=== PATIENT | male | born 1945 | race Caucasian/White ===

== ENCOUNTER 2017-05-25 10:14 | Inpatient (IN) | payer MEDICARE ==
[~2017-05-25] VITALS: Ht 182.9 cm; Wt 108.6 kg
[2017-05-25 10:56] VITALS: BP 149/77; PULSE 100; RESP 16; O2SAT 95
[2017-05-25] MEDS: 0.9% Sodium Chloride 1,000 ML IV SCH ×2 (11:40→21:35)
[2017-05-25] MEDS ORDERED: Ondansetron 2 mg/mL 2 mL Inj IVPUSH PRN (11:40)
[2017-05-25] MEDS ORDERED: Polyethylene Glycol (PEG) 17 Gm Powder PO PRN (11:40)
[2017-05-25] MEDS ORDERED: Alum-Mag Hydrox-Simeth 30 mL Suspension PO PRN (11:40)
[2017-05-25] MEDS ORDERED: OMEP20CA11 PO (11:48)
[2017-05-25] MEDS ORDERED: SIMV40TA5 PO (11:48)
[2017-05-25] MEDS ORDERED: METH500T5 PO (11:48)
[2017-05-25] MEDS ORDERED: METF-778 PO (11:48)
[2017-05-25] MEDS ORDERED: LORA0.5T PO (11:48)
[2017-05-25] MEDS ORDERED: BRIM5DRO10 BOTH_EYES (11:48)
[2017-05-25] MEDS ORDERED: LEVO100T6 PO (11:48)
[2017-05-25] MEDS ORDERED: DIGE1TAB PO (11:48)
[2017-05-25] MEDS ORDERED: UBID100C16 PO (11:48)
[2017-05-25] MEDS ORDERED: HYDR25TA4 PO (11:48)
[2017-05-25] MEDS ORDERED: LORA10CA9 PO (11:48)
[2017-05-25 12:03] LABS: BASOPHILS % (AUTO) 0.3 % (0-3); EOSINOPHILS % (AUTO) 0.7 % (0-5); MONOCYTES % (AUTO) 16.7 % (4-12); Mean Corpuscular Hemoglobin 31.9 pg (27.0-35.0); Mean Corpuscular Volume 88.8 fL (81-100); Platelet Count 149 bil/L (150-400)
[2017-05-25 12:30] LABS: APPEARANCE,URINE CLEAR (CLEAR,HAZY); COLOR,URINE DARK YELLOW (YELLOW); OCCULT BLOOD,URINE SMALL (NEGATIVE); PH,URINE 5.5 (5.0-8.0); UROBILINOGEN,URINE NORMAL (NORMAL)
[2017-05-25] MEDS: D5 0.45% NaCl + KCl 20 mEq/L 1,000 ML IV SCH ×2 (12:37→21:25)
[2017-05-25] MEDS ORDERED: Potassium Chloride 20 mEq SR Tablet PO ONE (13:00)
[2017-05-25 13:03] LABS: Magnesium 1.9 mg/dL (1.6-2.6)
[2017-05-25 13:31] VITALS: PULSE 65
[2017-05-25] MEDS: Insulin Human REGular 300 Unit/3 mL Inj SUBQ SCH ×2 (14:30→21:35)
[2017-05-25 15:11] VITALS: BP 158/82; PULSE 101; RESP 18; O2SAT 93
[2017-05-25] MEDS: Ampicillin-Sulbactam Inj 3,000 MG in 0.9% Sodium Chloride 100 ML IV SCH ×3 (16:00→23:18)
--- NOTE | 2017-05-25 16:13 | NUR ---
MRI Patient to MRI at this time. Ativan given prior.
[2017-05-25] MEDS ORDERED: DIGESTIVE PO SCH (16:30)
[2017-05-25] MEDS ORDERED: [UNRECOGNIZED DRUG - OTHER] PO SCH (16:30)
--- NOTE | 2017-05-25 16:47 | PCM.HPMED ---
Subjective Date of Service May 25, 2017 Primary Provider: Admitting Physician: Daniel Mcmullen MD Primary Care Physician: Jay Painter MD Attending Physician: Daniel Mcmullen MD Admit Status: Direct Admit, Full Admit Chief Complaint: Abdominal pain/6 days History of Present Illness: Tor is a pleasant 79-year-old gentleman with past medical history of hypertension, diabetes,HLD, obesity,GERD,ARACELIS who was transferred from Dr Mcmullen' s surgical clinic for direct admission due to abdominal pain. Patient states he had periumbilical, intermittent, abdominal pain which started on Sunday. Continues to have pain for 2 days and pain moved down to bilateral lower abdomen. Pain improved for the following 2 todays. Patient did not seek medical evaluation as he has history of diverticulosis with occasional brief lower abdominal pain. Since Sunday pain moved to RUQ.Pain was worse on Sunday and is improving since yesterday. He also had temp 100.4 2 days ago . Denies any nausea or vomiting. Denies any bowel habit change. Denies urinary complaints. He was seen by PCP and workup revealed leukocytosis 24,normal LFTs,CT consistent with acute cholecystitis.referred to Dr Mcmullen . he ordered US which also confirmed cholecystitis. He was sent from Dr Mcmullen's office for admission for acute cholecystitis. Review of Systems: Comprehensive review of systems performed, pertinent positives and negatives included in history of present illness Allergies Coded Allergies: No Known Allergies (Unverified , 05/25/17) Home Medications Levothyroxine 100mcg daily Metformin 1000 mg. Hydrochlorothiazide 25 mg daily Simvastatin 40 mg.hs Coenzyme Q 100mg hs Lorazepam 0.5 mg at bedtime when necessary for sleep Omeprazole 20 mg by mouth twice a day alphagan eye drp loratadine 1 moore daily PMH hypertension, diabetes/prediabetes, HLD, obesity, GERD, ARACELIS used to use CPAp but stopped using 2 yrs ago . Had palate surgery 20 years ago for that Erectile Dysfunction Surgical History Tonsillectomy in childhood uvulopalatopharyngoplasty 20 yrs ago for ARACELIS Family History Reviewed and unremarkable Social History Hx Alcohol Use: No Hx Substance Use: No Exam Vital Signs Vital Sign - Last Date Time Temp Pulse Resp B/P Pulse Ox O2 Delivery O2 Flow Rate FiO2 05/25/17 15:11 36.8 101 18 158/82 93 Room Air Exam Gen. patient is lying comfortably in hospital bed HEENT: Head is normocephalic atraumatic, Pupils equal and reactive, extraocular movements intact, Lungs clear to auscultation bilaterally Heart regular rate and rhythm without murmurs gallops or rubs Abdomen RUQ tenderness. Extremities pulses are present dorsalis pedis posterior tibialis and radial. tSkin is warm and dry there are no rashes, Psych alert and oriented to person place and time Neuro cranial nerves II through XII are grossly intact Lymph: There is no lymphadenopathy appreciated in the cervical supra infraclavicular regions : no ambrose Lab and Diagnostics Result Diagram: 05/25/17 1145 05/25/17 1145 X-Rays, CTs and MRIs PROCEDURE: US ABDOMEN ([id number]) INDICATIONS: CT SUGGESTS ACUTE CHOLECYSTITIS IMPRESSION: 1. Increased hepatic echogenicity which may be related to hepatic steatosis although other sources of hepatocellular dysfunction could be considered in the differential. 2. Gallbladder wall thickening and pericholecystic fluid without sludge or stones in the gallbladder fundus and no sonographic Fernando's sign. This can be associated with acute acalculus cholecystitis. Please correlate with physical exam findings and laboratory values. Differential considerations include gallbladder hydrops and neoplasm. This finding was discussed with Dr. Mcmullen's medical social consultant by the train crew member at 8 AM on 05/25/17. Dictated by: Heena Vazquez M.D. on 05/25/2017 at 8:17 Approved by: Heena Vazquez M.D. on 05/25/2017 at 8:23 Assessment & Plan Tor is a pleasant 79-year-old gentleman with past medical history of hypertension, diabetes,HLD, obesity,GERD,ARACELIS who was transferred from Dr Mcmullen' s surgical clinic for direct admission due to abdominal pain. # Acute acalculus cholecystitis,poa -wbc 20.5,CT and US consistent with acute acalculous cholecystitis -blood culture sent -npo -IVF at 100ml/h -Antibiotics Unasyn started per surgery -MRCP requested by Dr Mcmullen -Pain control morphine # HTN -Continue hydrochlorothiazide # Diabetes/prediabetes -hold metformin, insulin sliding scale # ARACELIS ,not using CPAP anymore #insominia/anxiety -lorazepam prn,ambien hs prn dvt ppx SCD for now Patient admitted under inpatient status with expected length of stay > 2 midnights for severity of present symptoms, complexities of treatment plan and risk for adverse events full code per patient Resuscitation Status: CPR: Attempt Resuscitation copies to: Jay Painter MD, Melaku MD May 25, 2017 16:47
--- NOTE | 2017-05-25 18:22 | DRSVH ---
PROCEDURE: MRI ABDOMEN WITH AND WITHOUT CONTRAST ([id number]) INDICATIONS: Hepatic Protocol - Cholecystitis vs Carcinoma TECHNIQUE: Coronal HASTE, axial 2D FLASH in- and [id number]; axial breath-hold T2 FSE. Dynamic axial VIBE dur ing the administration of contrast; post-contrast coronal VIBE or 2D FLASH with fat saturation from t he hepatic dome to the iliac crests. Optional diffusion weighted imaging and ADC may be performed. COMPARISON: Outside Film, CT, CT ABD PELVIS W CON, 05/23/2017, 11:00. [facility], US, AB DOMEN SONOGRAM, 11/19/2013, 7:19. FINDINGS: Image quality: Breathing motion artifact limits evaluation on the precontrast images. Lung bases: No basal pleural effusions. Heart size is normal. Solid organs: There are multiple circumscribed, lobulated hepatic cysts. One cyst demonstrates a lobu lated focus of T1 hyperintense signal suggesting the presence of blood products. Some of these are la yered posteriorly in a dependent fashion. There is no definite enhancement on the postcontrast images . The spleen demonstrates normal size and enhancement. The gallbladder is markedly distended and the wall is diffusely thickened throughout. There is a smal l amount of pericholecystic free fluid and pericholecystic fat stranding. There is mild enhancement o f the gallbladder wall on the delayed postcontrast images suggesting hyperemia. There are no discrete gallbladder mass lesions. Biliary system is non dilated. Pancreas is normal in morphology. No adrenal nodules. Both kidneys demonstrate normal size and enhancement, without hydronephrosis. There is mild bilateral perinephric fat stranding. Nodes and vessels: No retroperitoneal or mesenteric adenopathy by size criteria. Aorta and inferior vena cava are normal in size. Bowel and peritoneum: Unenhanced bowel loops are normal in caliber. No free fluid. Bones and soft tissues: No ventral hernias. Bone marrow is normal in overall signal. IMPRESSION: 1. Gallbladder distention with diffuse wall thickening and pericholecystic fluid. No cholelithiasis. These findings are suspicious for acute acalculous cholecystitis. No findings to suggest biliary obst ruction. No discrete enhancing gallbladder mass lesion to suggest focal neoplasm. These findings were discussed with Dr. Mcmullen at 6:12 PM on 05/25/17. Approved by: Heena Vazquez M.D. on 05/25/2017 at 18:20
[2017-05-25 19:55] VITALS: BP 141/71; PULSE 103; RESP 18; O2SAT 92
[2017-05-25] MEDS ORDERED: METHYLCELLULOSE 1000 MG PO SCH (20:30)
[2017-05-25] MEDS: Brimonidine 0.2% 5 mL Ophthalmic Solution BOTH_EYES SCH (21:24)
[2017-05-25] MEDS: LORazepam 0.5 mg Tablet PO SCH (21:24)
[2017-05-25] MEDS: Pantoprazole 20 mg ER24 Tablet PO SCH (21:24)
--- NOTE | 2017-05-25 21:57 | PCM.PNSURG ---
Subjective Date of Service: May 25, 2017 Visit Information: Reason for Visit Acalculous Cholecystitis,Dm Date of Admission: May 25, 2017 at 10:30 Hospital Day # 1 Subjective: Hungry. Otherwise doing okay, see my clinic note 05/25/2017 for further details Objective Vital Sign- Last 8 Hours Date Time Temp Pulse Resp B/P Pulse Ox O2 Delivery O2 Flow Rate FiO2 05/25/17 19:55 37.1 103 18 141/71 92 Room Air 05/25/17 15:11 36.8 101 18 158/82 93 Room Air Abdomen: Soft, Other (Tender to deep palpation RUQ) Result Diagram: 05/25/17 1145 05/25/17 1145 Assessment & Plan Impression Acalculous cholecystitis Problems: Plan Discussed antibiotics alone versus cholecystostomy tube versus cholecystectomy. Given his symptomatic improvement over the days, he would like to try antibiotics alone We will do that, following his labs over the next couple of days We also need to improve on his blood sugar control The earliest I see him going home if he improves is Sunday We might need to look into interventions if he does not improve or gets worse Daniel Mcmullen MD May 25, 2017 21:57
[2017-05-25 23:11] LABS: Hemoglobin A1C 7.9 % (4.8-5.6)
[2017-05-26] VITALS (9 sets, daily range): BP systolic 122–163; BP diastolic 73–94; PULSE 71–100; RESP 16–19; O2SAT 92–98
[2017-05-26] MEDS: Insulin Human REGular 300 Unit/3 mL Inj SUBQ SCH ×5 (02:30→20:51)
[2017-05-26] MEDS: D5 0.45% NaCl + KCl 20 mEq/L 1,000 ML IV SCH (03:54)
[2017-05-26 05:40] LABS: BASOPHILS % (AUTO) 0.2 % (0-3); EOSINOPHILS % (AUTO) 0.7 % (0-5); MONOCYTES % (AUTO) 16.7 % (4-12); Mean Corpuscular Hemoglobin 31.3 pg (27.0-35.0); Mean Corpuscular Volume 90.2 fL (81-100); NEUTROPHILS % (AUTO) 72.9 % (40-74); Platelet Count 143 bil/L (150-400)
[2017-05-26 06:19] LABS: Magnesium 1.9 mg/dL (1.6-2.6)
[2017-05-26] MEDS: Ampicillin-Sulbactam Inj 3,000 MG in 0.9% Sodium Chloride 100 ML IV SCH ×4 (06:31→23:47)
--- NOTE | 2017-05-26 07:13 | NUR ---
Anxiety Rather anxious on initial assessment. Lots of 1:1 provided to answer all questions and ensure needs met. Prn Ativan also administered per patient request and effective. Currently resting in bed without any complaints.
[2017-05-26] MEDS ORDERED: Potassium Chloride 20 mEq SR Tablet PO ONE (07:35)
[2017-05-26] MEDS: Brimonidine 0.2% 5 mL Ophthalmic Solution BOTH_EYES SCH ×2 (08:32→20:50)
[2017-05-26] MEDS: Pantoprazole 20 mg ER24 Tablet PO SCH ×2 (08:33→20:44)
[2017-05-26] MEDS: metFORMIN ER 500 mg ER24 Tablet PO SCH ×2 (09:05→19:19)
--- NOTE | 2017-05-26 11:38 | PROG NOTE ---
[address] [address] PROGRESS NOTE PATIENT: SONA BERNABE : 1945 MR#: [id number] ADMIT: 05/25/2017 JOB ID: [id number] DATE: 05/26/2017 SUBJECTIVE: The patient is seen in followup. He feels good with no abdominal pain whatsoever. He has no nausea. He wants to go home. OBJECTIVE: Temperature 36.9, pulse 91, blood pressure 144/73, saturation 92% on room air. General: He is sitting up in bed, in no acute distress. Chest is clear. Heart: Regular rate and rhythm. No murmurs. Abdomen is obese but soft, nondistended. He has had some mild fullness in the right upper quadrant but no discrete palpable mass. There is a small umbilical hernia, which is reducible. LABORATORIES: White count is 20.2, hematocrit 37.8, platelets 143, creatinine 1.05, glucose 157. Procalcitonin 0.81. IMAGING: Shows gallbladder distention with wall thickening and a small amount of pericholecystic fluid, but no cholelithiasis. There is no biliary obstruction. The liver has a hemorrhagic hepatic cyst. ASSESSMENT AND PLAN: A 71-year-old man with poorly controlled diabetes with acalculous cholecystitis. He is stable clinically with no abdominal pain and no nausea, with normal liver function tests. He wants to go home today, and I think that is reasonable. I discussed with him the management of acalculous cholecystitis and the role for cholecystostomy tube versus cholecystectomy. He is not in favor of cholecystectomy or cholecystostomy tube. I support him going home on oral antibiotics. He had an outpatient prescription for ciprofloxacin, and I would simply continue that for one week. He should follow up in surgery clinic in approximately one week.
--- NOTE | 2017-05-26 12:18 | PCM.PNMED ---
Subjective Date of Service May 26, 2017 Subjective Right upper quadrant pain improving. Afebrile. Patient went into a new episode of atrial fibrillation this morning. Onset while patient in bathroom and straining down. Episode lasted for 9 minutes and was asymptomatic. Elevated TSH noted and Synthroid dose increased. Exam Vital Signs Vital Sign - Last Date Time Temp Pulse Resp B/P Pulse Ox O2 Delivery O2 Flow Rate FiO2 05/26/17 10:23 91 05/26/17 08:31 36.9 16 144/73 92 Room Air Intake and Output 05/25/17 05/25/17 05/26/17 Cumulative From/Thru 15:00 23:00 07:00 05/25/17 10:58 - 05/26/17 05:56 Intake Total 0 ml 800 ml 800 ml Output Total 200 ml 100 ml 300 ml Balance -200 ml 700 ml 500 ml Intake Oral 0 ml 800 ml 800 ml Output Urine Total 200 ml 100 ml 300 ml # Voids 1 1 # Bowel Movements 0 0 Exam Gen. patient is lying comfortably in hospital bed HEENT: Head is normocephalic atraumatic, Pupils equal and reactive, extraocular movements intact, Lungs clear to auscultation bilaterally Heart regular rate and rhythm without murmurs gallops or rubs Abdomen RUQ tenderness. Extremities pulses are present dorsalis pedis posterior tibialis and radial. tSkin is warm and dry there are no rashes, Psych alert and oriented to person place and time Neuro cranial nerves II through XII are grossly intact Lymph: There is no lymphadenopathy appreciated in the cervical supra infraclavicular regions : no ambrose IVs and Medications Medications Reviewed: Medications were reviewed in detail Lab and Diagnostics Result Diagram: 05/26/1744105/26/17 0442 X-Rays, CTs and MRIs PROCEDURE: US ABDOMEN ([id number]) INDICATIONS: CT SUGGESTS ACUTE CHOLECYSTITIS IMPRESSION: 1. Increased hepatic echogenicity which may be related to hepatic steatosis although other sources of hepatocellular dysfunction could be considered in the differential. 2. Gallbladder wall thickening and pericholecystic fluid without sludge or stones in the gallbladder fundus and no sonographic Fernando's sign. This can be associated with acute acalculus cholecystitis. Please correlate with physical exam findings and laboratory values. Differential considerations include gallbladder hydrops and neoplasm. This finding was discussed with Dr. Mcmullen's medical staff services coordinator by the internal control manager at 8 AM on 05/25/17. Dictated by: Heena Vazquez M.D. on 05/25/2017 at 8:17 Approved by: Heena Vazquez M.D. on 05/25/2017 at 8:23 PROCEDURE: MRI ABDOMEN WITH AND WITHOUT CONTRAST ([id number]) INDICATIONS: Hepatic Protocol - Cholecystitis vs Carcinoma IMPRESSION: 1. Gallbladder distention with diffuse wall thickening and pericholecystic fluid. No cholelithiasis. These findings are suspicious for acute acalculous cholecystitis. No findings to suggest biliary obstruction. No discrete enhancing gallbladder mass lesion to suggest focal neoplasm. These findings were discussed with Dr. Mcmullen at 6:12 PM on 05/25/17. Approved by: Heena Vazquez M.D. on 05/25/2017 at 18:20 ADDENDUM: 2. Probable blood products within a hepatic cyst as described above. Nonemergent 6 week ultrasound followup is recommended to ensure stability of this finding and exclude internal vascularity. Dictated by: Heena Vazquez M.D. on 05/25/2017 at 20:03 Assessment & Plan Tor is a pleasant 79-year-old gentleman with past medical history of hypertension, diabetes,HLD, obesity,GERD,ARACELIS who was transferred from Dr Mcmullen' s surgical clinic for direct admission due to abdominal pain. # Acute acalculus cholecystitis,poa -Initial wbc 20.5,CT,MRI and US consistent with acute acalculous cholecystitis -blood culture x2 no growth -Tolerating diet -IVF at 100ml/h -Antibiotics Unasyn.will discharge on ciprofloxacin( has script) tomorrow -Pain control morphine #New onset paroxysmal atrial fibrillation -never had any history of atrial fibrillation -Episode lasted for 9 minutes -Probably precipitated by infection and hypokalemia -Telemetry -Echocardiogram requested # Hypothyroidism -High TSH 20,low FT4 of 0.69 - increased Synthroid from 100mcg to 125mcg , recommend follow-up TFT in few weeks # Hypokalemia -Repleted # HTN -Continue hydrochlorothiazide # Diabetes -hold metformin, insulin sliding scale -a1c 7.9 # ARACELIS ,not using CPAP anymore #insominia/anxiety -lorazepam prn,ambien hs prn dvt ppx SCD for now Patient admitted under inpatient status with expected length of stay > 2 midnights for severity of present symptoms, complexities of treatment plan and risk for adverse events full code per patient Disposition: Possible discharge tomorrow if continues to improve Jason Tavarez MD May 26, 2017 12:18
[2017-05-26] MEDS ORDERED: 0.9% Sodium Chloride 250 ML ONE (12:44)
--- NOTE | 2017-05-26 14:06 | DRSVH ---
[facility] [address] [place] [address] Echocardiogram Report Name: SONA BERNABE Luke e: 05/26/2017 Height: 72 in Hospital Exam Location: [facility] Weight: 240 lb Gender: Male BSA: 2.3 m2 : 1945 Age: 71 yrs BP: 144/73 mmHg Reason For Study: New onset atrial fibrillation Ordering Physician: HOSPITALIST [facility] Performed By: Loree Santana Referring Physician[facility] Interpretation Summary The left ventricle is normal in size. The ejection fraction is estimated to be 65-70%. The right ventricle is grossly normal size. The right ventricle is hyperdynamic. The left atrium is severely dilated. No significant valvular pathology seen. Procedure: A two-dimensional transthoracic echocardiogram with color flow and Doppler was performed. There is no prior echocardiogram noted for this patient. The study quality was technically difficult. The patient was in normal sinus rhythm during the exam. Left Ventricle: The left ventricle is normal in size. Left ventricular wall thickness is mildly increased. Proximal septal thickening is noted. There is no echo evidence for significant left ventricular outflow tract obstruction. The ejection fraction is estimated to be 65-70%. Septal motion is consistent with conduction abnormality. Assessment of diastolic parameters indicates a relaxation abnormality of the left ventricle, consistent with normal filling pressures. Right Ventricle: The right ventricle is grossly normal size. The right ventricle is hyperdynamic. Atria: The left atrium is severely dilated. Right atrium not well visualized. The interatrial septum is intact with no evidence for an atrial septal defect. The thickening of interatrial septum suggests lipomatous hypertrophy. Mitral Valve: The mitral valve leaflets appear borderline thickened, but open well. There is trace mitral regurgitation. Aortic Valve: The aortic valve is trileaflet. The aortic valve is slightly calcified. There is no aortic valve stenosis. There is trace aortic regurgitation. Tricuspid Valve: The tricuspid valve is not well visualized, but is grossly normal. Pulmonary artery pressures cannot be estimated because of the lack of a measurable TR jet velocity. There is trace tricuspid regurgitation. Pulmonic Valve: The pulmonic valve is not well seen, but is grossly normal. Great Vessels: The aortic root is normal size. The ascending aorta is mildly enlarged. The IVC is of normal diameter and collapses greater than 50% with a sniff. This suggests a low right atrial pressure of 3 mm Hg. Pericardium/ Pleura There is an anterior echo-free space consistent with a fat pad. There is no pleural effusion. MMode/2D Measurements & Calculations LVIDd: 5.6 cm LA A2 area LVOT diam LV bryant. diameter/BSA LVIDs: 3.1 cm (cm/m^2): 2.5 FS: 45.6 % asc Aorta IVSd: 1.1 cm LA A4 area Diam: 4.0 cm LVPWd: 1.3 cm LA length (vol) LA vol: 50.1 ml LA vol index : 21.8 ml/m2 LV sys. diameter/BSA (cm/m^2): 1.3 Doppler Measurements & Calculations Ao V2 max: 129.1 cm/secMV E max sukhwinder MV E/A: 0.85 PA V2 max Ao max P.7 mmHg : 48.5 cm/sec Med Peak E' Sukhwinder : 79.1 cm/sec Ao mean P.8 mmHg MV A max sukhwinder PA mean PG LVOT Max Sukhwinder : 57.2 cm/sec E/E' med: 5.8 : 1.5 mmHg : 108.7 cm/sec Lat Peak E' Sukhwinder YOVANI(I,D): 3.7 cm E/E' lat: 5.4 sev ratio: 0.77 E/e' average: 5.6 MV dec time: 0.16 sec Ao V2 mean LV V1 max PG PA V2 mean : 92.4 cm/sec : 59.6 cm/sec Ao V2 VTI: 24.5 cmLV V1 VTI: 18.9 cm PA pr(Accel) : 40.5 mmHg YOVANI(V,D): 4.0 cm2 YOVANI indexed to BSA (cm^2/m^2): 1.6 Reading Physician:JENELLE
--- NOTE | 2017-05-26 15:53 | NUR ---
A-fib/Constipation Pt had one episode of A-fib this morning between 0810-0817AM rate 140-150's. Pt states during that time he was in the bathroom straining as he was constipated. Pt will be staying for further monitoring of heart rhythm. ECHO completed. Pt aware of plan of care. Since the morning episode pt has been SR 80-90's w/PAC and PVC's. Pt states he has hx of ARACELIS but does not wear a CPAP pt states he had uvula removed and that helped a little bit but hasn't had a repeat sleep study. I did educate pt on correlation between A-fib and ARACELIS. at bedside. Pt given suppository per request and 2 senna. He did end up having a bowel movement. Care ongoing.
[2017-05-26] MEDS: LORazepam 0.5 mg Tablet PO SCH (20:44)
--- NOTE | 2017-05-27 05:01 | NUR ---
Rest Pt observed sleeping most of night, denies pain or nausea. Antibiotics infused. Safely independent for care. Hourly rounding ongoing.
[2017-05-27 05:19] VITALS: BP 144/82; PULSE 85; RESP 18; O2SAT 97
[2017-05-27] MEDS: Ampicillin-Sulbactam Inj 3,000 MG in 0.9% Sodium Chloride 100 ML IV SCH (05:21)
[2017-05-27 06:09] VITALS: PULSE 85
[2017-05-27] MEDS: metFORMIN ER 500 mg ER24 Tablet PO SCH (07:12)
[2017-05-27] MEDS: Brimonidine 0.2% 5 mL Ophthalmic Solution BOTH_EYES SCH (07:51)
[2017-05-27] MEDS: Insulin Human REGular 300 Unit/3 mL Inj SUBQ SCH (07:51)
[2017-05-27] MEDS: Pantoprazole 20 mg ER24 Tablet PO SCH (07:52)
--- NOTE | 2017-05-27 08:24 | PCM.DIMED ---
Discharge Instructions Date of Service May 27, 2017 Dates of Hospitalization May 25, 2017 at 10:30 Discharge Diagnosis Discharge Diagnosis # Acute acalculus cholecystitis,poa #New onset paroxysmal atrial fibrillation,resolved # Hypothyroidism -High TSH 20,low FT4 of 0.69 # HTN # Diabetes # ARACELIS ,not using CPAP anymore #insominia/anxiety Diet Discharge Diet: Low fat, Low Sodium Activity Discharge Activity: Limited until seen by PCP Call your provider Call your provider for: Fever or Chills, Shortness of breath, Bleeding, Chest pain, Vomitting, Excessive diarrhea, Weakness (unilateral) Patient Instructions Patient Instructions You were hospitalized due to acute cholecystitis. You have been treated with IV antibiotics. Please continue ciprofloxacin for 5 more days. You also had paroxysmal atrial fibrillation episode which lasted for about 9 minutes and resolved by itself. Your thyroid level is low, I have increased your thyroid medication/Synthroid dose from 100mcg daily to 125mcg daily. Please follow-up with PCP in 2 weeks and recheck thyroid function test. Please follow-up with in 1-2 weeks. Follow-up Provider: Jay Painter MD Follow-up with PCP in: 1 week Provider: Daniel Mcmullen MD Follow-up in: 2 weeks Jason Tavarez MD May 27, 2017 08:24
[2017-05-27] MEDS ORDERED: CIPR-198 PO (08:26)
[2017-05-27] MEDS ORDERED: LEVO100T6 PO (08:26)
[2017-05-27 08:35] LABS: Mean Corpuscular Volume 92.8 fL (81-100); Platelet Count 164 bil/L (150-400)
[2017-05-27 08:36] LABS: BASOPHILS % (AUTO) 0.4 % (0-3); EOSINOPHILS % (AUTO) 1.1 % (0-5); MONOCYTES % (AUTO) 12.5 % (4-12); NEUTROPHILS % (AUTO) 71.5 % (40-74)
[2017-05-27 08:48] VITALS: BP 141/79; PULSE 89; RESP 19; O2SAT 98
--- NOTE | 2017-05-27 09:32 | NUR ---
Activity Patient up ambulating in hallway this AM. Tolerating activity well. Denies pain and shortness of breath.
--- NOTE | 2017-05-27 09:58 | NUR ---
Discharge Patient discharged home and ambulated out to personal vehicle at 0945. Discharge information gone over with patient by roller mill operator and hard copy of prescriptions accompanied patient as well as original copys of discharge information. Telemetry and IV DC'd intact prior to patient discharging.
--- NOTE | 2017-05-27 12:29 | PCM.DC.MED ---
Discharge Summary Date of Service May 27, 2017 Dates of Hospitalization Date of Hospital Admission May 25, 2017 at 10:30 Date of Discharge: May 27, 2017 Providers: Admitting Physician: Daniel Mcmullen MD Primary Care Physician: Jay Painter MD Attending Physician: Daniel Mcmullen MD Diagnosis at Time of Discharge Diagnosis at Time of Discharge # Acute acalculus cholecystitis,poa #New onset paroxysmal atrial fibrillation,resolved # Hypothyroidism -High TSH 20,low FT4 of 0.69 # HTN # Diabetes # ARACELIS ,not using CPAP anymore #insominia/anxiety Consultations surgery Dr Mcmullen Procedures XRay, CTs & MRIs PROCEDURE: US ABDOMEN ([id number]) INDICATIONS: CT SUGGESTS ACUTE CHOLECYSTITIS IMPRESSION: 1. Increased hepatic echogenicity which may be related to hepatic steatosis although other sources of hepatocellular dysfunction could be considered in the differential. 2. Gallbladder wall thickening and pericholecystic fluid without sludge or stones in the gallbladder fundus and no sonographic Fernando's sign. This can be associated with acute acalculus cholecystitis. Please correlate with physical exam findings and laboratory values. Differential considerations include gallbladder hydrops and neoplasm. This finding was discussed with Dr. Mcmullen's medical assistant internal medicine by the magnetizer at 8 AM on 05/25/17. Dictated by: Heena Vazquez M.D. on 05/25/2017 at 8:17 Approved by: Heena Vazquez M.D. on 05/25/2017 at 8:23 PROCEDURE: MRI ABDOMEN WITH AND WITHOUT CONTRAST ([id number]) INDICATIONS: Hepatic Protocol - Cholecystitis vs Carcinoma IMPRESSION: 1. Gallbladder distention with diffuse wall thickening and pericholecystic fluid. No cholelithiasis. These findings are suspicious for acute acalculous cholecystitis. No findings to suggest biliary obstruction. No discrete enhancing gallbladder mass lesion to suggest focal neoplasm. These findings were discussed with Dr. Mcmullen at 6:12 PM on 05/25/17. Approved by: Heena Vazquez M.D. on 05/25/2017 at 18:20 ADDENDUM: 2. Probable blood products within a hepatic cyst as described above. Nonemergent 6 week ultrasound followup is recommended to ensure stability of this finding and exclude internal vascularity. Dictated by: Heena Vazquez M.D. on 05/25/2017 at 20:03 Brief History per HPI Tor is a pleasant 79-year-old gentleman with past medical history of hypertension, diabetes,HLD, obesity,GERD,ARACELIS who was transferred from Dr Mcmullen' s surgical clinic for direct admission due to abdominal pain. Patient states he had periumbilical, intermittent, abdominal pain which started on Sunday. Continues to have pain for 2 days and pain moved down to bilateral lower abdomen. Pain improved for the following 2 todays. Patient did not seek medical evaluation as he has history of diverticulosis with occasional brief lower abdominal pain. Since Sunday pain moved to RUQ.Pain was worse on Sunday and is improving since yesterday. He also had temp 100.4 2 days ago . Denies any nausea or vomiting. Denies any bowel habit change. Denies urinary complaints. He was seen by PCP and workup revealed leukocytosis 24,normal LFTs,CT consistent with acute cholecystitis.referred to Dr Mcmullen . he ordered US which also confirmed cholecystitis. He was sent from Dr Mcmullen's office for admission for acute cholecystitis. Hospital Course Tor is a pleasant 79-year-old gentleman with past medical history of hypertension, diabetes,HLD, obesity,GERD,ARACELIS who was transferred from Dr Mcmullen' s surgical clinic for direct admission due to abdominal pain. # Acute acalculus cholecystitis,poa -Initial wbc 20.5,CT,MRI and US consistent with acute acalculous cholecystitis -blood culture x2 no growth -Tolerating diet -IVF given -Antibiotics Unasyn.will discharge on ciprofloxacin for five more days -Pain meds declined by patient #New onset paroxysmal atrial fibrillation on 05/26 -never had any history of atrial fibrillation -Episode lasted for 9 minutes -Probably precipitated by infection and hypokalemia -Telemetry -Echocardiogram unremarkable # Hypothyroidism -High TSH of 20,low FT4 of 0.69 - increased Synthroid from 100mcg to 125mcg , recommend follow-up TFT in few weeks # Hypokalemia -Repleted # HTN -Continue hydrochlorothiazide # Diabetes -hold metformin, resume tomorrow ,insulin sliding scale used inpatient -a1c 7.9 # ARACELIS ,not using CPAP anymore #insominia/anxiety -lorazepam prn,ambien hs prn Patient admitted under inpatient status with expected length of stay > 2 midnights for severity of present symptoms, complexities of treatment plan and risk for adverse events full code per patient Disposition: discharge home Exam Vital Signs (Last) Date Time Temp Pulse Resp B/P Pulse Ox O2 Delivery O2 Flow Rate FiO2 05/27/17 08:48 36.9 89 19 141/79 98 Room Air Exam Gen. patient is lying comfortably in hospital bed HEENT: Head is normocephalic atraumatic, Pupils equal and reactive, extraocular movements intact, Lungs clear to auscultation bilaterally Heart regular rate and rhythm without murmurs gallops or rubs Abdomen RUQ tenderness. Extremities pulses are present dorsalis pedis posterior tibialis and radial. Skin is warm and dry there are no rashes, Psych alert and oriented to person place and time Neuro cranial nerves II through XII are grossly intact Lymph: There is no lymphadenopathy appreciated in the cervical supra infraclavicular regions : no ambrose Test 05/25/17 11:45 05/25/17 11:48 05/26/17 04:42 05/27/17 05:10 Hemoglobin A1c 7.9% (4.8-5.6) Lipase 35U/L (13-60) CA 19-9 Antigen 70U/mL (0-35) Procalcitonin 0.81ng/mL (0.00-0.08) Urine Color Dark yellow (YELLOW) Urine Appearance Clear (CLEAR,HAZY) Urine pH 5.5 (5.0-8.0) Urine Specific Gary 1.020 (1.003-1.035) Urine Protein 100mg/dL (NEG,TRACE) Urine Glucose (UA) Negativemg/dL (NEGATIVE) Urine Ketones Negativemg/dL (NEGATIVE) Urine Occult Blood Small (NEGATIVE) Urine Nitrite Negative (NEGATIVE) Urine Bilirubin Negative (NEGATIVE) Urine Urobilinogen Normalmg/dL (NORMAL) Urine Leukocyte Esterase Negative (NEGATIVE) Urine RBC 0-2/hpf (0-2) Urine WBC 0-5/hpf (0-5) Urine Epithelial Cells Occasional/hpf (NONE-MOD) Urine Crystals None seen (NONE SEEN) Urine Bacteria None/hpf (NONE-FEW) Urine Hyaline Casts None/lpf (NONE) Urine Granular Casts Occasional (NONE SEEN) Urine Waxy Casts None seen (NONE SEEN) Urine Red Blood Cell Casts None seen (NONE SEEN) Urine White Blood Cell Casts None seen (NONE SEEN) Urine Mucus Present (None Seen) Urine Trichomonas None seen (NONE SEEN) Urine Yeast None (NONE SEEN) Urinalysis Comment None Urine Culture Reflexed Not indicated Magnesium Level 1.9mg/dL (1.6-2.6) Thyroid Stimulating Hormone (TSH) 19.890uIU/mL (0.450-4.500) Free Thyroxine 0.69ng/dL (0.82-1.77) White Blood Count 17.0th/mm3 (3.8-10.1) Red Blood Count 4.19mil/mm3 (4.40-5.80) Hemoglobin 13.4g/dL (13.8-17.2) Hematocrit 38.9% (41.0-50.0) Mean Corpuscular Volume 92.8fL (81-100) Mean Corpuscular Hemoglobin 32.0pg (27.0-35.0) Mean Corpuscular Hemoglobin Concent 34.4% (32.0-37.0) Red Cell Distribution Width 13.0% (12.3-15.4) Platelet Count 164bil/L (150-400) Neutrophils (%) (Auto) 71.5% (40-74) Lymphocytes (%) (Auto) 8.9% (14-46) Monocytes (%) (Auto) 12.5% (4-12) Eosinophils (%) (Auto) 1.1% (0-5) Basophils (%) (Auto) 0.4% (0-3) Sodium Level 137mEq/L (134-144) Potassium Level 4.0mEq/L (3.5-5.2) Chloride Level 95mEq/L (97-108) Carbon Dioxide Level 28mmol/L (18-29) Blood Urea Nitrogen 16mg/dL (8-27) Creatinine 1.24mg/dL (0.76-1.27) Estimat Glomerular Filtration Rate 61mL/min (>59) Glucose Level 147mg/dL (60-99) Calcium Level 8.0mg/dL (8.5-10.1) Total Bilirubin 0.6mg/dL (0.0-1.2) Aspartate Amino Transf (AST/SGOT) 24U/L (0-50) Alanine Aminotransferase (ALT/SGPT) 21U/L (0-44) Alkaline Phosphatase 67U/L (25-160) Total Protein 5.6g/dL (6.4-8.4) Albumin 3.0g/dL (3.4-5.0) Discharge Medications Discharge Medications Brimonidine Tartrate (Alphagan P) 5 Ml Drops 5 ML BOTH_EYES BID (Reported) Ciprofloxacin (Ciprofloxacin) 500 Mg Tablet 500 MG PO BID Prescribed by: ELIU DENNIS MD Digestive 8/L.acidoph/Pectin (Digestive Enzymes Tablet) 50 Million Cell-100 Mg Tablet 1 EACH PO before meals (Reported) Levothyroxine (Levothyroxine) 100 Mcg Tablet 125 MCG PO DAILY Prescribed by: ELIU DENNIS MD Loratadine (Loratadine) 10 Mg Capsule 10 MG PO DAILY (Reported) Lorazepam (Lorazepam) 0.5 Mg Tablet 0.5 MG PO HS (Reported) Metformin HCl (Metformin HCl ER) 1,000 Mg [id number] 1,000 MG PO BID (Reported) Methylcellulose (Citrucel) 500 Mg Tablet 1,000 MG PO BID (Reported) Omeprazole (Omeprazole) 20 Mg Capsule.dr 20 MG PO BID (Reported) Simvastatin (Simvastatin) 40 Mg Tablet 40 MG PO HS (Reported) Ubidecarenone (Coq-10) 100 Mg Capsule 100 MG PO HS (Reported) As needed Hydrochlorothiazide (Hydrochlorothiazide) 25 Mg Tablet 25 MG PO DAILY PRN PRN For HYPERtension (Reported) Followup Plan Disposition: home Discharge Diet: Low fat, Low Sodium Discharge Activity: Limited until seen by PCP Patient Instructions You were hospitalized due to acute cholecystitis. You have been treated with IV antibiotics. Please continue ciprofloxacin for 5 more days. You also had paroxysmal atrial fibrillation episode which lasted for about 9 minutes and resolved by itself. Your thyroid level is low, I have increased your thyroid medication/Synthroid dose from 100mcg daily to 125mcg daily. Please follow-up with PCP in 2 weeks and recheck thyroid function test. Please follow-up with in 1-2 weeks. Follow-up Provider: Jay Painter MD Follow-up with PCP in: 1 week Provider: Daniel Mcmullen MD Follow-up in: 2 weeks Time spent 35 minutes counselling patient and coordinating discharge copies to: Jay Painter MD; Daniel Mcmullen MD, Melaku MD May 27, 2017 12:29
== END 2017-05-27 09:45 | disposition home or self-care (01) | DRG 446 ==
LOC: OSC 10:30
PROVIDERS: ADMIT Student in an Organized Health Care Education/Training Program; ATTEND Internal Medicine
DX: K81.0 Acute cholecystitis (principal); I10 Essential (primary) hypertension; E11.9 Type 2 diabetes mellitus without complications; E78.5 Hyperlipidemia, unspecified; K21.9 Gastro-esophageal reflux disease without esophagitis; G47.33 Obstructive sleep apnea (adult) (pediatric); F41.9 Anxiety disorder, unspecified; G47.00 Insomnia, unspecified; E03.9 Hypothyroidism, unspecified; I48.0 Paroxysmal atrial fibrillation

== ENCOUNTER 2017-06-12 09:18 | Inpatient (IN) | payer MEDICARE ==
[~2017-06-12] VITALS: Ht 182.9 cm; Wt 111.4 kg
[~2017-06-12 09:18] MED LIST: BRIM5DRO10 BOTH_EYES; CIPR-198 PO; DIGE1TAB PO; HYDR25TA4 PO; LEVO100T6 PO; LORA0.5T PO; LORA10CA9 PO; METF-778 PO; METH500T5 PO; OMEP20CA11 PO; SIMV40TA5 PO; UBID100C16 PO
[2017-06-12 09:45] VITALS: BP 142/82; PULSE 90; RESP 20; O2SAT 97
--- NOTE | 2017-06-12 10:19 | NUR ---
Admit Direct admit from [facility]. Pt walks in on own with steady gait. C/O some pain tolerable in upper ABD. Denies CP, SOB, Nausea. Endorses fevers and appetite changes. MD West notified who has assigned [facility] Team with pt. Pt to be seen by [facility] team. Care continues. Plan to keep pt NPO until further notice.
[2017-06-12] MEDS ORDERED: Ondansetron 2 mg/mL 2 mL Inj IVPUSH PRN (11:15)
[2017-06-12] MEDS ORDERED: Piperacillin-Tazo 3.375 Gm Inj 3.375 GM in Dextrose 5% Minibag Plus 50 ML IV ONE (11:15)
[2017-06-12] MEDS ORDERED: Alum-Mag Hydrox-Simeth 30 mL Suspension PO PRN (11:15)
[2017-06-12 12:12] LABS: BASOPHILS % (AUTO) 0.1 % (0-3); EOSINOPHILS % (AUTO) 0.3 % (0-5); MONOCYTES % (AUTO) 20.6 % (4-12); Mean Corpuscular Hemoglobin 31.7 pg (27.0-35.0); NEUTROPHILS % (AUTO) 65.1 % (40-74); Platelet Count 131 bil/L (150-400)
[2017-06-12 13:30] LABS: APPEARANCE,URINE HAZY (CLEAR,HAZY); COLOR,URINE STRAW (YELLOW); OCCULT BLOOD,URINE TRACE (NEGATIVE); PH,URINE 5.5 (5.0-8.0)
[2017-06-12] MEDS: 0.9% Sodium Chloride 1,000 ML IV SCH (13:30)
[2017-06-12 13:31] LABS: UROBILINOGEN,URINE NORMAL (NORMAL)
[2017-06-12] MEDS ORDERED: MeTOProlol 1 mg/mL 5 mL Inj ONE (13:52)
[2017-06-12] MEDS ORDERED: Neostigmine 1 mg/mL 10 mL Inj ONE (13:52)
[2017-06-12] MEDS ORDERED: Rocuronium 10 mg/mL 5 mL Inj ONE (13:52)
[2017-06-12] MEDS ORDERED: Ondansetron 2 mg/mL 2 mL Inj ONE (13:52)
[2017-06-12] MEDS ORDERED: fentaNYL-PF 50 mCg/mL 2 mL Inj ONE (13:52)
[2017-06-12] MEDS ORDERED: Propofol 10,000 mCg/mL 20 mL Inj ONE (13:52)
[2017-06-12] MEDS ORDERED: Dexamethasone 4 mg/mL Inj ONE (13:52)
[2017-06-12] MEDS ORDERED: Glycopyrrolate 0.2 MG/ML 1mL Inj ONE (13:52)
--- NOTE | 2017-06-12 14:06 | PCM.HPMED ---
Subjective Date of Service Jun 12, 2017 Primary Provider: Admitting Physician: Rd West MD Primary Care Physician: Jay Painter MD Attending Physician: Rd West MD Admit Status: Direct Admit, Admit to [place] Team Chief Complaint: Fever/3 days History of Present Illness: Tor is a pleasant 79-year-old gentleman with past medical history of hypertension, diabetes,HLD, obesity,GERD,ARACELIS who is directly admitted per his PCP rec due to bacteremia after he presented to his PCP office with fever. Patient was recently hospitalized from 05/25-05/27 for acute acalculous cholecystitis. Workup on prior admission Wbc 20.5,CT and US consistent with acute acalculous cholecystitis. She was treated conservatively with Unasyn and discharged on ciprofloxacin. He improved and had no symptoms for 2 weeks after discharge. Had follow-up with PCP Dr Painter and surgeon Dr Mcmullen on 06/04 . CBC done at PCP on 06/04 reportedly had WBC of 14 but unremarkable otherwise Saturday 06/09 he developed sudden onset high-grade fever,temp as high as 103.0 with associated malaise which prompted his visit to PCP office Sunday/ yesterday . He had blood drawn yesterday . He was also scheduled for CT scan today. This morning he was called by his PCP due to positive blood culture for gram- negative rods, WBC 15,ALT elevated 3x, urinalysis no pyuria and admitted directly for bacteremia labs on 06/11 : WBCs 15, ALT 126, AST 49, bilirubin 0.4, BNP 15, creatinine 1.23, elevated CRP Denies any abdominal pain, nausea or vomiting. His states he had complained of mild epigastric pain few days ago. Denies any urinary complaints. Denies any constipation or diarrhea. Denies cough or dyspnea Review of Systems: Comprehensive review of systems performed, pertinent positives and negatives included in history of present illness Allergies Coded Allergies: No Known Allergies (Unverified , 05/25/17) Home Medications Levothyroxine 125mcg daily( increased from 100mcg daily up on discharge on 05/27 due to High TSH 20,low FT4 of 0.69) Metformin XR 500 mg. daily Hydrochlorothiazide 25 mg daily Simvastatin 40 mg.hs Coenzyme Q 100mg hs Lorazepam 0.5 mg at bedtime when necessary for sleep Omeprazole 20 mg by mouth twice a day alphagan eye drp loratadine 1 moore daily PMH Recent acute acalculus cholecystitis hypertension, diabetes/prediabetes, HLD, obesity, GERD, ARACELIS used to use CPAp but stopped using 2 yrs ago . Had palate surgery 20 years ago for that Erectile Dysfunction Surgical History Tonsillectomy in childhood uvulopalatopharyngoplasty 20 yrs ago for ARACELIS Family History per PCP note he has family history of pancreatic and prostate cancer Social History Hx Alcohol Use: No Hx Substance Use: No Exam Vital Signs Vital Sign - Last Date Time Temp Pulse Resp B/P Pulse Ox O2 Delivery O2 Flow Rate FiO2 06/12/17 09:45 36.6 90 20 142/82 97 Room Air Exam Gen. patient is lying comfortably in hospital bed HEENT: Head is normocephalic atraumatic, Pupils equal and reactive, extraocular movements intact, Lungs clear to auscultation bilaterally Heart regular rate and rhythm without murmurs gallops or rubs Abdomen soft nontender without hepatosplenomegaly Extremities pulses are present dorsalis pedis posterior tibialis and radial. Skin is warm and dry there are no rashes, Psych alert and oriented to person place and time Neuro cranial nerves II through XII are grossly intact Lymph: There is no lymphadenopathy appreciated in the cervical supra infraclavicular regions : no ambrose Lab and Diagnostics Result Diagram: 06/12/17 1112 06/12/17 1112 Assessment & Plan Tor is a pleasant 79-year-old gentleman with past medical history of hypertension, diabetes,HLD, obesity,GERD,ARACELIS who is directly admitted per his PCP Dr.Blume hale due to bacteremia after he presented to his PCP office with fever. # Gram-negative bacteremia/sepsis,poa -temp 103.0 at home,wbc 14.5 -Source likely acute acalculus cholecystitis given recent cholecystitis managed conservatively,negative pyuria,elevated ALT x3 -NS at 100ml/h -will do CT abd/pelvis with contrast -notified Dr Mcmullen of patients hospitalization and will officially consult after CT scan -Started Zosyn -will consider ID consult if initial workup is unrevealing of source of infection -npo until Ct and/or surgical eval -will send new blood culture. Follow-up sensitivity of initial blood culture from PCP office # Recent paroxysmal atrial fibrillation on prior hospitalization on 05/26 -never had any history of atrial fibrillation -Episode lasted for 9 minutes -Probably precipitated by infection and hypokalemia -Telemetry -Echocardiogram unremarkable # Hypothyroidism -Recently increased Synthroid from 100mcg to 125mcg on prior hospitalization due to High TSH of 20,low FT4 of 0.69 -Continue Synthroid # HTN -Continue hydrochlorothiazide # Diabetes -hold metformin ,insulin sliding scale used inpatient -Recent a1c 7.9 # ARACELIS ,not using CPAP anymore #insominia/anxiety -lorazepam prn,ambien hs prn full code per patient Patient admitted under inpatient status with expected length of stay > 2 midnights for severity of present symptoms, complexities of treatment plan and risk for adverse events copies to: Jay Painter MD, Melaku MD Jun 12, 2017 14:06
--- NOTE | 2017-06-12 14:42 | DRSVH ---
PROCEDURE: X-RAY CHEST ONE VIEW, PORTABLE ([id number]) INDICATIONS: fever TECHNIQUE: One view of the chest was acquired. COMPARISON: None. FINDINGS: Surgical changes and devices: None. Lungs and pleura: No pleural effusions or pneumothorax. Lungs are clear. Mediastinum: Mediastinal contours appear normal. Heart size is normal. Bones and chest wall: No suspicious bony lesions. Overlying soft tissues appear unremarkable. IMPRESSION: No acute cardiopulmonary disease. Dictated by: Richard Cadena [facility] Interpreted: Willie Balbuena MD on 06/12/2017 at 14:19 Approved by: Willie Balbuena M.D. on 06/12/2017 at 14:41
[2017-06-12 15:17] VITALS: PULSE 91
[2017-06-12] MEDS ORDERED: LEVO125T6 PO (15:30)
[2017-06-12] MEDS ORDERED: ZLP10T PO (15:30)
--- NOTE | 2017-06-12 15:51 | DRSVH ---
PROCEDURE: CT ABDOMEN AND PELVIS WITH CONTRAST ([id number]) INDICATIONS: bacteremia,recent cholecystitis TECHNIQUE: After the administration of oral and intravenous contrast, 5 mm thick sections acquired from the diap hragms to the symphysis. 5 mm thick coronal and sagittal reformats were performed. For radiation do se reduction, the following was used: automated exposure control, adjustment of mA and/or kV accordi ng to patient size. COMPARISON: [facility], US, US ABDOMEN, 05/25/2017, 7:11. [facility], MR, MR ABD W&WO CON, 05/25/2017, 16:24. Outside Film, CT, CT ABD PELVIS W CON, 05/23/2017, 11:00. FINDINGS: Image quality: Excellent. ABDOMEN: Lung bases: Lung bases are clear. Heart size is normal. Solid organs: Liver and spleen are normal in size and enhancement. There are scattered hepatic cyst s. Gallbladder is abnormal with prominent mural thickening, and pericholecystic free fluid and edema . Biliary system is non-dilated. Pancreas enhances normally. No adrenal nodules. Kidneys are norm al in size and enhancement, without hydronephrosis. Peritoneum and bowel: Stomach, small bowel, and colon loops are normal in caliber and wall thickness . No free fluid or air. Nodes and vessels: No retroperitoneal or mesenteric adenopathy. Aorta and inferior vena cava are no rmal in caliber. Miscellaneous: No ventral hernias. PELVIS: Genitourinary: Bladder wall thickness is normal. Miscellaneous: No inguinal hernias or adenopathy. Bones: No suspicious bony lesions. No vertebral body compression fractures. IMPRESSION: Acute cholecystitis with gallbladder wall prominent thickening and adjacent pericholecyst ic free fluid in mural thickening of the gallbladder wall up to 1.4 cm. The appearance at the gallbl adder is considered unlikely to represent a manifestation of malignancy and much more likely to repre sent an inflammatory process. Surgical consultation is recommended. Please note that prior MR scanning of the abdomen had identified a similar appearance, with probable diagnosis of acalculous cholecystitis. Gallbladder wall thickening by ultrasound at that time was 11 -12 mm maximal dimension without identified polypoid mass. In my opinion there is no suspicion for p resence of gallbladder carcinoma by imaging characteristics. Dictated by: Marko Raya M.D. on 06/12/2017 at 15:45 Approved by: Marko Raya M.D. on 06/12/2017 at 15:50
[2017-06-12] MEDS: Pantoprazole 20 mg ER24 Tablet PO SCH (16:30)
--- NOTE | 2017-06-12 17:04 | CONS ---
[address] [address] CONSULTATION REPORT PATIENT: SONA BERNABE : 1945 MR#: [id number] ADMIT: 06/12/2017 JOB ID: [id number] DATE OF SERVICE: 06/12/2017 CHIEF COMPLAINT: A 72-year-old gentleman with acalculous cholecystitis with bacteremia, seen in consultation at the request of Jason Tavarez MD. HISTORY OF PRESENT ILLNESS: This patient is a 72-year-old gentleman I met on May 25, 2017, at the request of Dr. Painter with a diagnosis of acute acalculous cholecystitis. At that time, after a thorough investigation, he was admitted to the hospital and was treated with antibiotics and was thought to have gotten clinically improved and got discharged home. When I last saw him on June 04, 2017, he was finishing his antibiotics and was feeling fine. After that, he started developing fevers without any significant abdominal pain which he self-treated with some Tylenol but he eventually presented to Dr. Painter. Dr. Painter saw him yesterday and obtained blood work, along with blood cultures and sent him as a direct admission to the hospital today after blood cultures showed gram-negative rods. The patient at this time denies any significant abdominal pain. OTHER MEDICAL PROBLEMS: 1. Hypertension. 2. Hyperlipidemia. 3. Diabetes. 4. Obesity. 5. Gastroesophageal reflux disease. 6. Erectile dysfunction. 7. Sleep apnea. 8. Irritable bowel syndrome. 9. Hypothyroidism. 10. Anxiety. PRIOR OPERATIONS: 1. Tonsillectomy in childhood. 2. Uvulopalatopharyngoplasty. REVIEW OF SYSTEMS: Twelve point review of systems negative other than the pertinent positives noted in History of Present Illness and other medical problems. MEDICATIONS: At home: 1. Hydrochlorothiazide. 2. Levothyroxine. 3. Metformin. 4. Omeprazole. 5. Citrucel. 6. Enzymes. ALLERGIES: No known drug allergies. FAMILY HISTORY: Family history of high blood pressure and diabetes. SOCIAL HISTORY: He quit smoking in 1970 after about 12 years. He is a retired peace officer. He is here with his . They live in [place]. INVESTIGATIONS: Labs, June 12, 2017: WBC 14.5, hemoglobin 13.5, platelet count 131. Glucose 121. ALT 80. Procalcitonin 0.44. Albumin 3.6. Urinalysis negative. Chest x-ray, June 12, 2017: Normal. CT abdomen and pelvis, June 12, 2017 showed acute cholecystitis with gallbladder wall prominent thickening with adjacent pericholecystic fluid with gallbladder wall measuring up to 1.4 cm. No obvious calcified stones were seen again. PHYSICAL EXAMINATION: A 72-year-old gentleman in no acute distress. BMI 33.3. Temperature 36.6, pulse 90, blood pressure 142/82, saturating 97% on room air. Eyes: Normal pupils, conjunctivae. Ears, nose, and throat: Normal external appearance. Neck: No lymphadenopathy or jugular venous distention. Respiratory: Normal effort, clear to auscultation. Cardiovascular: Regular rate and rhythm. Gastrointestinal: Abdomen is soft. Denies significant pain despite deep pressure in the right upper quadrant. Reports "I can feel something there." Genitourinary: Deferred. Neurologic: No gross deficits. Psych: Alert, appropriate. Skin normal. ASSESSMENT AND PLAN: Acalculous cholecystitis with bacteremia. Recommended laparoscopic cholecystectomy with cholangiogram. Given the duration of his symptoms for over three weeks now, we could have trouble with significant inflammation increasing the risk of the operation. After discussing the risks, benefits, and alternatives, the patient and his wished to proceed and will proceed accordingly. He is going to be managed with IV antibiotics and insulin for control of his blood sugars in the acute period.
[2017-06-12] MEDS ORDERED: DIGESTIVE PO SCH (17:30)
[2017-06-12] MEDS ORDERED: [UNRECOGNIZED DRUG - OTHER] PO SCH (17:30)
--- NOTE | 2017-06-12 18:55 | CONS ---
[address] [address] CONSULTATION REPORT PATIENT: SONA BERNABE : 1945 MR#: [id number] ADMIT: 06/12/2017 JOB ID: [id number] DATE OF SERVICE: 06/12/[address] Tavarez for this timely consult. REASON FOR CONSULTATION: Bacteremic acalculous cholecystitis. HISTORY OF PRESENT ILLNESS: The patient is a 72-year-old gentleman with a recent history of admission for acalculous cholecystitis in early May of this year. During that admission an evaluation was done which strongly suggested by imaging that the patient had acalculous cholecystitis but he was nontoxic and responded to conservative therapy. The decision was made to send him home on some oral Cipro following a brief course of IV antibiotics and the patient actually did extremely well until about Sunday, June 09, three days ago. At that point, he noticed a recrudescence of some low-grade fever as well as some subtle chills and generalized malaise. Because of these symptoms and especially because of the fever, he went and saw his primary care physician, Dr. Painter, yesterday. Dr. Painter was concerned about his fever as well as a leukocytosis and checked blood cultures. The patient was contacted by telephone today because those blood cultures done just yesterday are already growing gram-negative rods and the patient was therefore sent to the emergency department where he was rapidly readmitted and re-evaluated. He has been seen already by the surgeon this afternoon who believes that, at this point, a cholecystectomy is indicated for what appears to be recurrent or relapsing acalculous cholecystitis, this time associated with gram-negative bacteremia. Despite this fairly dramatic story over he past three weeks or so, the patient late this afternoon is calm, cool, collected, and really denies much in the way of ongoing symptomatology. He is a bit anxious about his surgery which is supposed to proceed in the next hour or two. He has had some fevers and chills since Sunday as noted, but they have been low-grade on both counts and not severe nor have they been occurring this afternoon. He is not having any significant sore throat, cough, shortness of breath or chest pain. He is not having, interestingly, any right upper quadrant pain and denies nausea vomiting, diarrhea, or really any intra-abdominal pain. He does agree though that given these two admissions in the last couple weeks, he should proceed with surgery. PAST MEDICAL HISTORY: 1. 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 2. Hypertension. 3. Diabetes controlled with metformin. 4. Hyperlipidemia. 5. Obesity. 6. GERD. 7. Obstructive sleep apnea, treated with palate surgery. 8. Erectile dysfunction. SOCIAL HISTORY: The patient was a cigarette smoker, but quit in 1970 as a young man actually. He is not an alcohol consumer except maybe one drink a month. He lives with his Aria. 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 FAMILY HISTORY: Negative for tuberculosis in 1st or second-degree relatives. REVIEW OF SYSTEMS: The patient has no significant headache today. No acute visual complaint, no sore throat. No cough, shortness of breath or chest pain. He denies nausea, vomiting, diarrhea, or even anorexia. He has no right upper quadrant pain and more importantly, no abdominal pain of any kind. Denies urgency, frequency, dysuria, or any urinary symptoms. No pain in the joints, swelling of the joints. No skin rash and no focal motor symptoms. Remainder of the review of systems is negative. PHYSICAL EXAMINATION: Reveals an afebrile gentleman, temperature 36.6, pulse 91, respiratory rate 20, blood pressure 142/82. He is saturating well on room air. He appears in almost no distress at all which is somewhat surprising, given that he very recently had a high-grade bacteremia. He is alert and lucid. His head without trauma. Eyes without conjunctivitis or scleral icterus. Nose normal. Oral cavity, no thrush or hairy leukoplakia. Neck supple. No cervical adenopathy. His lungs are essentially clear. Cardiac tones: Regular rate and rhythm without murmur. Abdomen somewhat obese. His BMI is 33. There is no focal hepatosplenomegaly, no ascites and no tenderness whatsoever including very negative right upper quadrant. He does not have a Grubbs catheter at this point. No suprapubic fullness is noted. No evidence of synovitis. No skin rashes. Peripheral pulses are intact. Neurologically, he is intact. LABORATORIES: Include white count 14,500 today. Platelets 131. Creatinine 0.98. Urinalysis 0-5 white cells. Micro studies include negative blood cultures today, but yesterday's blood cultures were reported from [facility] to be growing gram-negative rods. IMAGING: Includes an abdominal CT that was performed today which shows acute cholecystitis with gallbladder wall thickening and adjacent pericholecystic free fluid. The gallbladder wall is 1.4 cm thick and the radiologist opined that this did not appear malignant but more likely was an acute inflammatory process. The radiologist also reviewed the prior MRI scans from his earlier admission and feels that the whole package is consistent with acalculous cholecystitis. The patient also had a chest x-ray done today which I reviewed on the screen. This chest x-ray shows no acute pulmonary infiltrate, but by my reading, it suggests there could be some mild cardiomegaly. The radiologist's opinion is that it is clear, and I am inclined to go along with their interpretation. IMPRESSION: This is an unusual case of outpatient acalculous cholecystitis. The patient presented during the first few days of May with fairly typical picture and an MRI scan suggested acalculous cholecystitis at that time. He cooled down rapidly with a short course of Zosyn and then was transition to outpatient oral Cipro and did fine until June 09 when fever and chills recurred. Blood cultures drawn on the were positive very rapidly for gram-negative rods which I suspect are arising from his gallbladder. His CT of the abdomen today is very convincing in terms of the report for the diagnosis of acalculous cholecystitis and goes along nicely with the MRI scan done 2-1/2 weeks ago. The only odd part of this case is the patient is so asymptomatic. This afternoon, the patient is watching a baseball game and looks as if he is sitting on his sofa at home. He is in no distress whatsoever and his exam is surprisingly benign including very vigorous and deep palpation of the right upper quadrant. Nonetheless, we do have gram-negative bacteria in his blood and two imaging studies done over the course of the past three weeks which implicate his gallbladder and probable acalculous cholecystitis is the cause of this process. RECOMMENDATIONS: 1. I agree with the Zosyn which has been started. 2. Tomorrow we will make contact with the lab and find out the definitive identification of the gram-negative rods in his blood as well as their susceptibility pattern. 3. I agree with the plans for emergent surgery this evening given that the patient has been admitted twice now with this same process. 4. Will continue to follow this patient with you and thank you very much for this interesting consult.
[2017-06-12 19:00] VITALS: BP 152/80; PULSE 108; RESP 17; O2SAT 94
[2017-06-12] MEDS ORDERED: Lactated Ringer's 1,000 ML IV ONE (19:10)
--- NOTE | 2017-06-12 19:15 | NUR ---
Off unit to surgery Arrived to shift as pt is being taken to OR.
[2017-06-12] MEDS ORDERED: Bupivacaine-MPF 0.5% 30 mL Inj INFILTRATE ONE (19:51)
[2017-06-12] MEDS ORDERED: Iopamidol-300 50 mL Inj IV ONE (19:52)
[2017-06-12] MEDS: Piper-Tazo 3.375 Gm/50 mL D5W Minibag Plus - Q8H over 4 hrs IV SCH ×2 (20:30)
[2017-06-12] MEDS ORDERED: METHYLCELLULOSE 1000 MG PO SCH (20:30)
[2017-06-12 20:41] LABS: APPEARANCE,URINE CLEAR (CLEAR,HAZY); COLOR,URINE YELLOW (YELLOW); OCCULT BLOOD,URINE SMALL (NEGATIVE); PH,URINE 5.5 (5.0-8.0); UROBILINOGEN,URINE NORMAL (NORMAL)
[2017-06-13] VITALS (12 sets, daily range): BP systolic 122–156; BP diastolic 64–87; PULSE 67–97; RESP 17–26; O2SAT 93–98
[2017-06-13] MEDS ORDERED: HYDROmorphone 1 mg/mL Inj IVPUSH PRN ×2 (00:35→00:40)
--- NOTE | 2017-06-13 00:39 | PCM.HPANE ---
Patient Data Surgeon Admitting Provider:Rd West MD Attending Provider:Rd West MD Primary Care Physician:Jay Painter MD Other Provider:Eryn Carrera Anesthesia Reason for Visit Bacteremia,Cholecystitis BACTEREMIA,CHOLECYSTITIS Ht/WT & BMI Height (Feet): 6 Weight (Kilograms): 111.400 Body Mass Index 33.26 Allergies Coded Allergies: No Known Allergies (Unverified , 05/25/17) Past Anesthesia History Anesthesia History: Denies:: Anesthesia Reactions Diabetes History Hx Diabetes?: Yes (PreDiabetic ) MRSA MRSA: No Medications Reported Medications Zolpidem (Ambien)10 Mg Nwozle90 Mg PO HS 06/12/17 Levothyroxine 125 Mcg Zayhzk852 Mcg PO QAM For Thyroid Replacement 06/12/17 Loratadine 10 Mg Qdupgpp99 Mg PO QAM 05/25/17 Digestive 8/.acidoph/Pectin (Digestive Enzymes Tablet)50 Million Cell-100 Mg Tablet1 Tablet PO TIDWM 05/25/17 Methylcellulose (Citrucel)500 Mg Tablet1,000 Mg PO BID 05/25/17 Brimonidine Tartrate (Alphagan P)5 Ml Drops1 Drop BOTH_EYES BID 05/25/17 Omeprazole 20 Mg Capsule.dr20 Mg PO BID 05/25/17 Lorazepam 0.5 Mg Tablet0.5 Mg PO HS 05/25/17 Ubidecarenone (Coq-10)100 Mg Qwzxobu253 Mg PO HS 05/25/17 Simvastatin 40 Mg Kslahj43 Mg PO HS 05/25/17 Metformin HCl (Metformin HCl ER)1,000 Mg Fmbiqta75s3,000 Mg PO BIDWM 05/25/17 Discontinued Reported Medications Hydrochlorothiazide 25 Mg Xcssal56 Mg PO DAILY PRN For HYPERtension 30 Days Ref 0 05/25/17 Discontinued Scripts Ciprofloxacin 500 Mg Apllkv504 Mg PO BID #10 TABLET Prov:Jason Tavarez MD 05/27/17 Levothyroxine 100 Mcg Ihzfdx506 Mcg PO DAILY For Thyroid Replacement #30 TABLET Ref 0 Prov:Jason Tavarez MD 05/27/17 History History of ENT Problems?: Yes HEENT History: Positive for:: Cataracts (2015 removed) Sinus Problem (take over counter medications HX of infections) Denies:: Dysphagia Denture Type: None Teeth Condition: Within Normal Limits Hx of Heart Problems?: No Cardiovascular History: Positive for:: Hypertension Denies:: Cardiac Surgery Chest Pain Congestive Heart Failure Edema Pacemaker Hx of Respiratory Problem?: No Respiratory History: Denies:: Asthma COPD Chest Surgery Emphysema Hemoptysis Pneumonia Hx Neurologic Problems?: Yes Neurological History: Positive for:: Dizziness Headaches Denies:: Alzheimer's Disease CVA Dementia Parkinson's Disease Seizures Hx of GI Problems?: Yes Hx of Problems?: Yes Genitourinary History: Positive for:: Urinary Tract Infection Denies:: Kidney Stones Male Hx: Denies:: Prostate Problems Scrotal Mass Testicular Surgery Hx Musculoskeletal Problems?: Yes Musculoskeletal History: Denies:: Back Injury Joint Replacement Musculoskeletal Trauma Hx of Psycho/Social Problems?: Yes Psycho Social History: Positive for:: Anxiety Denies:: Bipolar Disorder Hx Depression Suicide Attempt Hx Surgeries?: No Hx Any Other Health Problems?: Yes Other History: Positive for:: Hospitalization (Hit head 17 y/o [facility] stay ) Thyroid Disease (hypothyroid) Denies:: Cancer History Blood Transfusions: Positive for:: Accept Blood Products? Denies:: Blood Transfuse Reaction Blood Transfusions Hx Diabetes: Yes (PreDiabetic ) Hx Alcohol Use: NoHx Substance Use: No Smoking Status: Former Smoker Have You Smoked inLast 12 mo: No Stop/Bang Treated for Sleep Apnea?: No Do You Have a CPAP Machine?: Yes (not using CPAP since uvular removed) S-Snoring: Do You Snore Loudly: Yes T-Tired: feel tired, fatigued: Yes O-Obsered: Observed not breath: No P-Blood Pressure: treated: No B- Body Mass Index > 35 kg/m2: No A- Age over 50: Yes N- Neck Large Circumference: Yes G- Gender Male: Yes ARACELIS Total Score: 4 ARACELIS Category 2: Yes Risk Assessment Category Category 1A: Patient has history of documented sleep apnea, and HAS NOT received any narcotic, sedative or anesthesia administration during this stay. Category 1B: Patient has history of documented sleep apnea, and HAS received any narcotic , sedative or anesthesia administration during this stay Category 2: Patient has SUSPECTED Obstructive Sleep Apnea, and HAS received any narcotic , sedative or anesthesia administration during this stay. Category 3: Patient has SUSPECTED Obstructive Sleep Apnea and HAS NOT received narcotic, sedative or anesthesia administration during this stay. Category 4: Outpatient in Procedural Areas with known sleep apnea or who screen positive for High Risk via the STOP/BANG questionnaire. Exam Exam Vital Signs Vital Signs Date Time Temp Pulse Resp B/P Pulse Ox O2 Delivery O2 Flow Rate FiO2 06/13/17 00:33 36.5 79 26 98 Simple Mask 8 06/12/17 19:00 37.6 108 17 152/80 94 Room Air General Appearance: Alert, Oriented X3, Cooperative HEENT/AIRWAY: MP 2 Lungs: Clear to Percussion, Normal Air Movement Heart: Exam Unremarkable, Regular Rate/Rhythm Meds/Labs/Diagnostics Admission Meds Current Medications Sodium Chloride 1,000 ml @ 100 mls/hr Q10H IV Last administered on 06/12/17 13:30; Start 06/12/17 at 11:12 Piperacillin Sod/ Tazobactam Sod 3.375 gm/Dextrose/ Water 50 ml @ 100 mls/hr OT ONCE IV Last administered on 06/12/17 13:31; Start 06/12/17 at 11:15; Stop 06/12/17 at 11:44; Status DC Piperacillin Sod/ Tazobactam Sod 3.375 gm/Dextrose/ Water 50 ml @ 12.5 mls/hr Q8 IV Last administered on 06/12/17 20:30; Start 06/12/17 at 16:30 Lactated Ringer's (Lr) 1,000 ml @ ud STK-MED ONCE IV Last administered on 06/12 19:10; Start 06/12/17 at 19:10; Stop 06/12/17 at 20:02; Status DC Bupivacaine HCl (Sensorcaine-MPF 0.5% Inj) 30 ml STK-MED ONCE INFILTRATE Last administered on 06/12/17 19:51; Start 06/12/17 at 19:51; Stop 06/12/17 at 20:02 ; Status DC Iopamidol (Isovue-300 Inj) 50 ml STK-MED ONCE IV Last administered on 19:52; Start 06/12/17 at 19:52; Stop 06/12/17 at 20:02; Status DC Labs Test 06/12/17 11:12 06/12/17 13:01 06/12/17 20:21 White Blood Count 14.5th/mm3 (3.8-10.1) Red Blood Count 4.26mil/mm3 (4.40-5.80) Hemoglobin 13.5g/dL (13.8-17.2) Hematocrit 39.2% (41.0-50.0) Mean Corpuscular Volume 92.0fL (81-100) Mean Corpuscular Hemoglobin 31.7pg (27.0-35.0) Mean Corpuscular Hemoglobin Concent 34.4% (32.0-37.0) Red Cell Distribution Width 12.8% (12.3-15.4) Platelet Count 131bil/L (150-400) Neutrophils (%) (Auto) 65.1% (40-74) Lymphocytes (%) (Auto) 13.5% (14-46) Monocytes (%) (Auto) 20.6% (4-12) Eosinophils (%) (Auto) 0.3% (0-5) Basophils (%) (Auto) 0.1% (0-3) Sodium Level 135mEq/L (134-144) Potassium Level 3.8mEq/L (3.5-5.2) Chloride Level 97mEq/L (97-108) Carbon Dioxide Level 22mmol/L (18-29) Blood Urea Nitrogen 14mg/dL (8-27) Creatinine 0.98mg/dL (0.76-1.27) Estimat Glomerular Filtration Rate 80mL/min (>59) Glucose Level 121mg/dL (60-99) Calcium Level 9.0mg/dL (8.5-10.1) Magnesium Level 2.0mg/dL (1.6-2.6) Total Bilirubin 0.5mg/dL (0.0-1.2) Aspartate Amino Transf (AST/SGOT) 29U/L (0-50) Alanine Aminotransferase (ALT/SGPT) 80U/L (0-44) Alkaline Phosphatase 91U/L (25-160) Total Protein 7.5g/dL (6.4-8.4) Albumin 3.6g/dL (3.4-5.0) Procalcitonin 0.44ng/mL (0.00-0.08) Hold Thomas Top Tube Received (Received) Urine Color Yellow (YELLOW) Urine Appearance Clear (CLEAR,HAZY) Urine pH 5.5 (5.0-8.0) Urine Specific [place] 1.015 (1.003-1.035) Urine Protein 30mg/dL (NEG,TRACE) Urine Glucose (UA) Negativemg/dL (NEGATIVE) Urine Ketones 80mg/dL (NEGATIVE) Urine Occult Blood Small (NEGATIVE) Urine Nitrite Negative (NEGATIVE) Urine Bilirubin Negative (NEGATIVE) Urine Urobilinogen Normalmg/dL (NORMAL) Urine Leukocyte Esterase Negative (NEGATIVE) Urine RBC 3-10/hpf (0-2) Urine WBC 0-5/hpf (0-5) Urine Epithelial Cells Occasional/hpf (NONE-MOD) Urine Crystals Amorphous urates (NONE Urine Bacteria Few/hpf (NONE-FEW) Urine Hyaline Casts None/lpf (NONE) Urine Granular Casts None seen (NONE SEEN) Urine Waxy Casts None seen (NONE SEEN) Urine Red Blood Cell Casts None seen (NONE SEEN) Urine White Blood Cell Casts None seen (NONE SEEN) Urine Mucus None seen (None Seen) Urine Trichomonas None seen (NONE SEEN) Urine Yeast None (NONE SEEN) Urinalysis Comment None Urine Culture Reflexed Not indicated Plan Impression Patient chart reviewed, patient interviewed and anesthestic plan with risks, benefits, and alternatives discussed, and informed consent obtained. NPO per Anesth. Guidelines: Yes ASA Physical Status: ASA3 Severe Disease Anesthetic Plan: GA Bene/Risks/Altern/Consents: Yes HP Complete Prior to Induction: Yes Alexandre Martin MD Jun 13, 2017 00:39
[2017-06-13] MEDS ORDERED: Dexamethasone 4 mg/mL Inj IVPUSH PRN (00:40)
[2017-06-13] MEDS ORDERED: MetoCLOpramide 5 mg/mL 2 mL Inj IVPUSH PRN (00:40)
[2017-06-13] MEDS ORDERED: EPHEDrine Sulfate 50 mg/mL Inj IVPUSH PRN (00:40)
[2017-06-13] MEDS ORDERED: fentaNYL-PF 50 mCg/mL 2 mL Inj IVPUSH PRN (00:40)
[2017-06-13] MEDS ORDERED: Phenylephrine 10,000 mCg/mL Inj IVPUSH PRN (00:40)
[2017-06-13] MEDS ORDERED: Lactated Ringer's 1,000 ML IV SCH (00:40)
[2017-06-13] MEDS ORDERED: Lactated Ringer's 500 ML IV PRN (00:40)
--- NOTE | 2017-06-13 00:40 | PCM.ANEP1 ---
Post Anesthesia PACU Phase 1 Assessment Vital Signs Vital Signs Date Time Temp Pulse Resp B/P Pulse Ox O2 Delivery O2 Flow Rate FiO2 06/13/17 00:33 36.5 79 26 98 Simple Mask 8 06/12/17 19:00 37.6 108 17 152/80 94 Room Air Anesthetic Administered: GA Level of Alertness: Awake, talking ELLIS's with Equal Strength: Yes Pain: No (pt left for surgery) Nausea or Vomiting: No CV Function & Hydration Stable: Yes Airway Device: Endotrachial Tube Lungs: Clear to Percussion, Normal Air Movement Dermatome Level: Full Sensation PACU Phase 2 Assessment Complications: No Follow up Care: No Patient Instructions Provided: N/A Alexandre Martin MD Jun 13, 2017 00:40
--- NOTE | 2017-06-13 01:10 | OP ---
[address] [address] OPERATIVE REPORT PATIENT: SONA BERNABE : 1945 MR#: [id number] ADMIT: 06/12/2017 JOB ID: [id number] DATE OF SURGERY: 06/12/2017 PREOPERATIVE DIAGNOSIS(ES): Acalculous cholecystitis with bacteremia. POSTOPERATIVE DIAGNOSIS(ES): Gangrenous cholecystitis with bacteremia. SURGEON: Daniel Mcmullen MD. STEEL MOLDER: Pranay Bueno MD. PROCEDURE PERFORMED: Laparoscopic cholecystectomy, subtotal, attempted cholangiogram. INDICATIONS: The patient is a 72-year-old gentleman I met on May 25, 2017, with a diagnosis of acute acalculous cholecystitis. At that time, after thorough investigation he was admitted to the hospital and was treated with antibiotics, and was thought to have clinically gotten better and was discharged home. When I saw him 10 days later, he finished his antibiotics and was feeling fine. After that, he started developing fevers without any significant abdominal pain, which he self-treated with some Tylenol, but he eventually got blood cultures from Dr. Painter which showed gram-negative bacteremia, prompting him to come to admission today. Repeat CT scan showed worsening findings of cholecystitis, and after discussing the risks, benefits and alternatives, he was brought to the operating room for cholecystectomy. PROCEDURE DETAILS: He was placed in supine position and underwent smooth induction of general anesthesia. Had a Grubbs catheter placed and then the abdomen was prepped and draped in the usual sterile fashion. Surgical time-out was undertaken using safety checklist. We began by entering the abdomen in the supraumbilical location using open Paco technique and Optiview trocar. Obtained pneumoperitoneum, then up-sized to 12 mm. I then placed two 5 mm ports, one in the epigastrium, one in the right upper quadrant, and noticed omentum and transverse colon were densely adherent to the gallbladder. Then, placed an additional 5 mm port in the right upper quadrant and carefully mobilized the adhesions off the omentum, the colon and the duodenum to the gallbladder with a combination of careful blunt and sharp dissection. During this process it was apparent that most of the gallbladder wall itself was actually gangrenous and the gallbladder replaced to a large extent with pus. This was suctioned and sent for culture, and I continued to take this dissection down to the duodenum, but beyond that point I was not able to safely separate the infundibulum of the gallbladder from the duodenum. At that point, I made a window at a safe distance away from the hilum between the gallbladder and liver, and amputated the gallbladder there. I then dissected the stump of the gallbladder toward the cystic duct, but I was not able to reach the area because of the intense inflammation. At that time, I attempted to obtain a cholangiogram to visualize the rest of the biliary anatomy, but I was unsuccessful. I then decided to control the infundibulum off the gallbladder with a PDS Endoloop and then divided it. I then dissected the rest of the gallbladder from the liver bed to the best of my ability, but definitely did leave some posterior wall of the gallbladder intact on the liver. I cauterized this area and placed all the fragments of gallbladder into EndoCatch bag, and after ensuring hemostasis removed them. After that, I ensured hemostasis and cauterized the retained gallbladder mucosa and extracted the gallbladder through the umbilical port site through the EndoCatch bag. After that, closed the supraumbilical fascia with [id number] 0 PDS suture. Skin was reapproximated with 4-0 Monocryl. Steri-Strips and sterile dressing were applied. The patient was recovered from anesthesia and was taken to the recovery room in stable condition. ADDENDUM FOR MODIFIER 22: Because of the gangrenous nature of the cholecystitis, along with the patient's body habitus, the operative duration more than doubled, prompting us to request increased reimbursement. NICKOLAS
[2017-06-13 01:11] LABS: EOSINOPHILS % (AUTO) 0 % (0-5)
[2017-06-13] MEDS: Piper-Tazo 3.375 Gm/50 mL D5W Minibag Plus - Q8H over 4 hrs IV SCH ×8 (01:11→20:39)
[2017-06-13 01:22] LABS: BASOPHILS % (AUTO) 0 % (0-3); MONOCYTES % (AUTO) 13.5 % (4-12); Mean Corpuscular Hemoglobin 31.4 pg (27.0-35.0); Mean Corpuscular Volume 92.7 fL (81-100); NEUTROPHILS % (AUTO) 79.7 % (40-74); Platelet Count 133 bil/L (150-400)
[2017-06-13] MEDS: metFORMIN ER 500 mg ER24 Tablet PO SCH ×2 (01:29→08:43)
--- NOTE | 2017-06-13 01:45 | NUR ---
Post op Returned to floor alert and awake, denies significant abdominal pain; reports aching pain in right elbow, declines offer of pain medication. 3 lap sites with bandaids, no drainage; active bowel tones. AGUILAR drain to right side, bloody drainage, bulb to suction. Denies nausea, NPO status remains per orders. IV fluids infusing, antibiotics per pharmacy. Tele and pulse oximetry monitoring restarted. Returned with ambrose catheter, pt requested immediate removal, able to void spontaneously. Hourly rounding ongoing.
[2017-06-13] MEDS: LORazepam 0.5 mg Tablet PO SCH ×2 (01:56→20:41)
[2017-06-13] MEDS: Brimonidine 0.2% 5 mL Ophthalmic Solution BOTH_EYES SCH ×3 (01:56→20:40)
[2017-06-13] MEDS: 0.9% Sodium Chloride 1,000 ML IV SCH ×3 (02:13→17:12)
[2017-06-13 06:09] LABS: BASOPHILS % (AUTO) 0.1 % (0-3); EOSINOPHILS % (AUTO) 0 % (0-5); MONOCYTES % (AUTO) 14.2 % (4-12); Mean Corpuscular Hemoglobin 31.6 pg (27.0-35.0); Mean Corpuscular Volume 92.3 fL (81-100); Platelet Count 118 bil/L (150-400)
[2017-06-13] MEDS: Pantoprazole 20 mg ER24 Tablet PO SCH ×2 (06:18→17:39)
--- NOTE | 2017-06-13 06:23 | NUR ---
Ambulation Ambulated in hallway in am with steady gait and no increase in pain. Denies nausea, would like to advance diet. Bowel tones active, passing flatus. Hourly rounding ongoing.
[2017-06-13 07:01] LABS: Bilirubin, Direct 0.2 mg/dL (0.0-0.3)
[2017-06-13] MEDS ORDERED: Glucose 40% Oral Gel 15 Gm Tube PO PRN (07:55)
[2017-06-13] MEDS ORDERED: Dextrose 10% 250 ML IV PRN (08:10)
--- NOTE | 2017-06-13 08:37 | PCM.PNMED ---
Subjective Date of Service Jun 13, 2017 Subjective Patient seen and examined today. Doing good. No pain. Passing gas. Vitals stable. Exam Vital Signs Vital Sign - Last Date Time Temp Pulse Resp B/P Pulse Ox O2 Delivery O2 Flow Rate FiO2 06/13/17 06:00 36.4 76 18 129/74 95 06/13/17 01:35 Supplement Oxygen 06/13/17 01:28 2.00 Intake and Output 06/12/17 06/12/17 06/13/17 Cumulative From/Thru 15:00 23:00 07:00 06/12/17 00:09 - 06/13/17 06:00 Intake Total 2250 ml 379 ml 2729 ml Output Total 400 ml 890 ml 1575 ml Balance 1850 ml -511 ml 1154 ml Intake Oral 0 ml 0 ml 0 ml IV Total 2250 ml 379 ml 2729 ml Output Urine Total 400 ml 850 ml 1500 ml Drainage Total 40 ml 55 ml Estimated Blood Loss 20 ml # Bowel Movements 0 0 Exam Gen. patient is lying comfortably in hospital bed Lungs clear to auscultation bilaterally Heart regular rate and rhythm without murmurs gallops or rubs Abdomen mildly distended, laproscopic scars visible, no erythema noticed, bs + Extremities pulses are present dorsalis pedis posterior tibialis and radial. Skin is warm and dry there are no rashes, : no ambrose Lab and Diagnostics Result Diagram: 06/13/17 0545 06/13/17 0545 Assessment & Plan Tor is a pleasant 79-year-old gentleman with past medical history of hypertension, diabetes,HLD, obesity,GERD,ARACELIS who is directly admitted per his PCP Dr.Blume hale due to bacteremia after he presented to his PCP office with fever. # Gram-negative bacteremia/sepsis, 2/2 acalculus cholecystitis -temp 103.0 at home,wbc 14.5 - afebrile now, wbcs trending down - s/p cholecystectomy -on Zosyn # Recent paroxysmal atrial fibrillation on prior hospitalization on 05/26 -never had any history of atrial fibrillation -Episode lasted for 9 minutes -Probably precipitated by infection and hypokalemia -Telemetry -Echocardiogram unremarkable # Hypothyroidism -Recently increased Synthroid from 100mcg to 125mcg on prior hospitalization due to High TSH of 20,low FT4 of 0.69 -Continue Synthroid # HTN -uised to take HTZ however discontinued since his bp has been ok by his pcp - will monitor # Diabetes -hold metformin ,insulin sliding scale used inpatient -Recent a1c 7.9 ' # ARACELIS ,not using CPAP anymore #insominia/anxiety -lorazepam prn,ambien hs prn full code per patient Patient admitted under inpatient status with expected length of stay > 2 midnights for severity of present symptoms, complexities of treatment plan and risk for adverse events VTE Mechanical Devices: Intermittant Pneumatic CD Time spent 35 mins Santiago Mancini MD Jun 13, 2017 08:37
[2017-06-13] MEDS: Insulin LISPRO 300 Unit/3 mL Inj SUBQ SCH ×4 (09:33→22:00)
--- NOTE | 2017-06-13 11:03 | PCM.PNSURG ---
Subjective Date of Service: Jun 13, 2017 Visit Information: Reason for Visit Bacteremia,Cholecystitis Surgery/Surgery Date Post-Op Day # Date of Admission: Jun 12, 2017 at 09:40 Hospital Day # Subjective: No acute overnight events Reports that this morning is the best he has felt in several weeks Minimal incisional pain, no nausea, feels hungry Voiding Ambulated in halls multiple times already Afebrile Objective Vital Sign- Last 8 Hours Date Time Temp Pulse Resp B/P Pulse Ox O2 Delivery O2 Flow Rate FiO2 06/13/17 10:37 67 06/13/17 06:00 36.4 76 18 129/74 95 Intake and Output- Last 8 Hour 06/13/17 Cumulative From/Thru 07:00 06/12/17 00:09 - 06/13/17 06:00 Intake Total 379 ml 2729 ml Output Total 890 ml 1575 ml Balance -511 ml 1154 ml Intake Oral 0 ml 0 ml IV Total 379 ml 2729 ml Output Urine Total 850 ml 1500 ml Drainage Total 40 ml 55 ml Estimated Blood Loss 20 ml # Bowel Movements 0 0 General: Alert, Cooperative, No Acute Distress Neck: Supple Lungs: Normal Air Movement Heart: Exam Unremarkable Abdomen: Soft, Appropriately tender, Non-distended, Other (Lap incisions x3 with clean bandage in place. RLQ AGUILAR drain with serosanguinous output. ) Extremities: Warm Neuro: Grossly Neurologically Intact Result Diagram: 06/13/17 0545 06/13/17 0545 Assessment & Plan Impression 72M with with acalculous gangrenous cholecystitis and GNR bacteremia now POD#1 s /p laparoscopic subtotal cholecystectomy. He is convalescing appropriately in the immediate post-op period. Problems: Plan - Ok to advance diet as tolerated - Pain control with PO apap and oxycodone - AGUILAR drain to remain - Continue zosyn for now - Aggressive glycemic control - Surgery will continue to follow. Please do not hesitate to page or call Pranay Bueno MD Jun 13, 2017 11:03
--- NOTE | 2017-06-13 11:41 | PROG NOTE ---
[address] [address] PROGRESS NOTE PATIENT: SONA BERNABE : 1945 MR#: [id number] ADMIT: 06/12/2017 JOB ID: [id number] DATE: 06/13/2017 INFECTIOUS DISEASE FOLLOW UP NOTE: REASON FOR FOLLOWUP: Gangrenous gallbladder. INTERVAL HISTORY: Recall this is a patient we saw yesterday with what was thought to be recurrent acalculous cholecystitis. The patient was relatively nontoxic and was being treated with Zosyn at that time. He was subsequently taken to the operating room last night where it was found out that he had an almost completely gangrenous gallbladder which was filled with pus. There was a long and complicated procedure which the patient tolerated well and this morning he is awake, alert, and in no acute distress. He denies fevers or chills this morning. He has a mild sore throat due to the endotracheal tube placement. He denies any significant shortness of breath or cough. He has surprisingly minimal right upper quadrant pain despite the extensive surgery that went on their last night. No other new complaints. PHYSICAL EXAMINATION: Reveals an afebrile gentleman, temperature 36.4, pulse 67, respiratory rate 18, blood pressure 129/74, saturating well on room air. Oral cavity unremarkable. Lungs clear. Cardiac tones without new murmur. Abdomen mildly distended with some minimal right upper quadrant tenderness. A AGUILAR drain is present and is draining rather bloody appearing fluid. No skin rash noted. LABORATORIES: Include white count down to 17,000 this morning, still with left shift. Creatinine 1.02, which is actually improved. His ALT is 58, albumin 3.3. Urinalysis without white cells. Cultures from the Gram stains from the gallbladder show many polys, gram variable rods, gram positive cocci and gram negative rods. IMPRESSION: This patient has had two admissions in the past three weeks for gallbladder disease and it turns out, in fact, that he had gangrenous cholecystitis. He has now underwent resection which is, of course, the definitive treatment. At least three different organisms appear to be visible on the Gram stain and we await the culture and susceptibilities of these, but one would expect enteric gram-negative rods, possibly enterococci and possibly anaerobes given the gangrenous nature of this process. All of these should be susceptible to Zosyn. RECOMMENDATIONS: 1. Will continue with Zosyn at this time in the dose of 3.375 g IV q.8. 2. We await the final susceptibilities on the organism. 3. Will potentially transfer the patient to oral therapy in a few days. I would anticipate a total length of antibiotic therapy on the order of one week.
--- NOTE | 2017-06-13 12:18 | DRSVH ---
PROCEDURE: X-RAY OPERATIVE CHOLANGIOGRAM ([id number]) INDICATIONS: CHOLECYSTECTOMY COMPARISON: None. FINDINGS: Exam is limited as there was extravasation at the cystic duct cannulation site. The bile duct is not opacified and cannot be evaluated. IMPRESSION: Extravasation at the cannulation site. The extra hepatic bile duct is not opacified. Dictated by: Richard Cadena [facility] Interpreted: Juan Carlos Smith MD on 06/13/2017 at 10:13 Approved by: Juan Carlos Smith M.D. on 06/13/2017 at 12:16
--- NOTE | 2017-06-13 12:44 | NUR ---
Social Work: Initial Assessment/ Multidisciplinary Rounds D: EMR reviewed. Please see Initial Assessment linked to this note for more information. Pt is a 72 year old male admitted [place] with a readmit risk score of 4 for bacteremia, cholecystitis per H&P. Pt is POD 1. Pt's insurance is [employer] PCP is Jay Painter MD. SW met with pt at bedside to conduct initial assessment. Pt was alert and oriented x3. SW explained role and wrote phone number on white board. SW provided [facility] Discharge Planning Checklist and encouraged pt to contact SW for any discharge planning questions. Pt discussed in rounds, pt will require surgery follow up after hospitalization. Pt has been observed ambulating in the [place]. Pt currently has AGUILAR drain, unkown if pt will d/c with this drain. No SW needs identified, no MD orders received at this time. Pt lives at home with his spouse in [place]. Pt is independent with all ADLs. Pt uses no DME. Pt ambulates independently. Pt drives. Pt's to provide transportation home at d/c. Pt's is DPOA, paperwork on file. A: Pt who is independent at baseline and has the capacity for self-care. P: Pt anticipated to discharge home with to transport via POV. No SW needs identified, no MD orders received at this time. SW will continue to follow for needs until time of discharge. REMEDIOS Eid Addendum: 06/13/17 at 1249 by GABINO TRAN SS Amended: Links added.
--- NOTE | 2017-06-13 13:53 | NUR ---
Cough / Ambulation Pt c/o productive cough. Able to cough up yellow/brown sputum with small amount of red specks in it thick. Some soreness in throat as well most likely r/t Sx. Kathy BERUMEN to request Throat lozenge or something to help relieve some pain for pt. No new orders at this time. Plan to give and educate on IS as well. Ambulates well with steady gait around halls several times . Care continues
[2017-06-13] MEDS: Benzocaine-Menthol Lozenge 2/Pkg PO PRN ×2 (14:32→20:40)
[2017-06-13] MEDS: Polyethylene Glycol (PEG) 17 Gm Powder PO PRN (17:46)
[2017-06-14] VITALS (9 sets, daily range): BP systolic 117–178; BP diastolic 59–92; PULSE 72–98; RESP 16–20; O2SAT 93–96
[2017-06-14] MEDS: 0.9% Sodium Chloride 1,000 ML IV SCH ×3 (00:24→20:30)
--- NOTE | 2017-06-14 02:17 | NUR ---
Pain/Tele Pt c/o 12/29 abd pain. Tylenol 650mg given. Pt appeared to be asleep upon reassessment. Tele: SR 78 per ekg monitor tech. VSS. Care continues.
--- NOTE | 2017-06-14 04:46 | NUR ---
Shoulder pain Pt has suffered with right shoulder and arm pain since return from OR; ice and heat applied alternately for relief. Day RN to follow up. Abdominal pain has been minimal, AGUILAR drain with output, pt ambulates in room and hallway with steady gait. Hourly rounding ongoing.
[2017-06-14] MEDS: Piper-Tazo 3.375 Gm/50 mL D5W Minibag Plus - Q8H over 4 hrs IV SCH ×6 (04:53→20:34)
[2017-06-14 06:29] LABS: BASOPHILS % (AUTO) 0.1 % (0-3); EOSINOPHILS % (AUTO) 0.5 % (0-5); MONOCYTES % (AUTO) 18.4 % (4-12); Mean Corpuscular Hemoglobin 31.4 pg (27.0-35.0); Mean Corpuscular Volume 92.7 fL (81-100); NEUTROPHILS % (AUTO) 71.8 % (40-74); Platelet Count 126 bil/L (150-400)
[2017-06-14] MEDS: Pantoprazole 20 mg ER24 Tablet PO SCH ×2 (06:38→16:46)
[2017-06-14 06:41] LABS: Bilirubin, Direct 0.2 mg/dL (0.0-0.3)
--- NOTE | 2017-06-14 07:11 | PCM.PNSURG ---
Subjective Date of Service: Jun 14, 2017 Visit Information: Reason for Visit Bacteremia,Cholecystitis Surgery/Surgery Date Post-Op Day # Date of Admission: Jun 12, 2017 at 09:40 Hospital Day # Subjective: No acute overnight events Endorses some pain in left shoulder, which is a chronic problem for him but seems to have been exacerbated by surgery Minimal abdominal pain, mainly in the RUQ and at the drain site Tolerating PO intake, no nausea Voiding Has not yet had a BM but is passing some flatus Ambulating frequently Objective Vital Sign- Last 8 Hours Date Time Temp Pulse Resp B/P Pulse Ox O2 Delivery O2 Flow Rate FiO2 06/14/17 06:25 85 06/14/17 04:47 36.8 87 18 126/68 94 Nasal Cannula 2.00 06/14/17 00:25 36.7 82 18 117/59 94 Room Air Intake and Output- Last 8 Hour 06/14/17 Cumulative From/Thru 07:00 06/12/17 00:09 - 06/14/17 05:51 Intake Total 1142 ml 6727 ml Output Total 1210 ml 3425 ml Balance -68 ml 3302 ml Intake Oral 400 ml 2600 ml IV Total 742 ml 4127 ml Output Urine Total 1155 ml 3255 ml Drainage Total 55 ml 150 ml Estimated Blood Loss 20 ml # Bowel Movements 0 0 General: Alert, Oriented X3, Cooperative, No Acute Distress Neck: Supple Lungs: Normal Air Movement Heart: Exam Unremarkable Abdomen: Other (Moderately distended. Appropriately tender. Incisions covered with clean bandages. Drain with serosanguinous output. ) Result Diagram: 06/14/17 0532 06/14/17 0532 Assessment & Plan Impression POD#2 s/p laparoscopic subtotal cholecystectomy for gangrenous cholecystitis. He is convalescing appropriately at this time. Problems: Plan - Ok for regular diet - Drain to remain for now, no evidence of bile leak. Drain will likely stay until post-op appt in surgery clinic. - Continue excellent glycemic control - Zosyn until blood cultures speciate - Suppository and bowel regimen to promote BM - Please do not hesitate to page/call with questions Pranay Bueno MD Jun 14, 2017 07:11
[2017-06-14] MEDS: Insulin LISPRO 300 Unit/3 mL Inj SUBQ SCH ×4 (08:00→21:14)
[2017-06-14] MEDS: Brimonidine 0.2% 5 mL Ophthalmic Solution BOTH_EYES SCH ×2 (08:07→20:33)
[2017-06-14] MEDS: Polyethylene Glycol (PEG) 17 Gm Powder PO PRN (11:02)
--- NOTE | 2017-06-14 11:10 | PCM.PNMED ---
Subjective Date of Service Jun 14, 2017 Subjective Patient seen and examined. Doing much better today. Vitals stable. Passing gas, havent had bowel movement yet Exam Vital Signs Vital Sign - Last Date Time Temp Pulse Resp B/P Pulse Ox O2 Delivery O2 Flow Rate FiO2 06/14/17 08:41 91 06/14/17 08:00 36.7 16 160/78 96 Room Air 06/14/17 04:47 2.00 Intake and Output 06/13/17 06/13/17 06/14/17 Cumulative From/Thru 15:00 23:00 07:00 06/12/17 00:09 - 06/14/17 05:51 Intake Total 2856 ml 1142 ml 6727 ml Output Total 640 ml 1210 ml 3425 ml Balance 2216 ml -68 ml 3302 ml Intake Oral 2200 ml 400 ml 2600 ml IV Total 656 ml 742 ml 4127 ml Output Urine Total 600 ml 1155 ml 3255 ml Drainage Total 40 ml 55 ml 150 ml Estimated Blood Loss 20 ml # Bowel Movements 0 0 0 Exam Gen. patient is lying comfortably in hospital bed Lungs clear to auscultation bilaterally Heart regular rate and rhythm without murmurs gallops or rubs Abdomen mildly distended, laproscopic scars visible, no erythema noticed, bs +, drain in place, no leak Extremities pulses are present dorsalis pedis posterior tibialis and radial. Skin is warm and dry there are no rashes, : no ambrose Lab and Diagnostics Result Diagram: 06/14/17 0532 06/14/17 0532 Assessment & Plan Tor is a pleasant 79-year-old gentleman with past medical history of hypertension, diabetes,HLD, obesity,GERD,ARACELIS who is directly admitted per his PCP Dr.Blume hale due to bacteremia after he presented to his PCP office with fever. # Gram-negative bacteremia/sepsis, 2/2 acalculus cholecystitis -temp 103.0 at home,wbc 14.5 - afebrile now, wbcs trending down - s/p cholecystectomy -on Zosyn, susceptibilities pending # Recent paroxysmal atrial fibrillation on prior hospitalization on 05/26, resolved -never had any history of atrial fibrillation -Episode lasted for 9 minutes -Probably precipitated by infection and hypokalemia -Telemetry -Echocardiogram unremarkable # Hypothyroidism -Recently increased Synthroid from 100mcg to 125mcg on prior hospitalization due to High TSH of 20,low FT4 of 0.69 -Continue Synthroid # HTN -uised to take HTZ however discontinued since his bp has been ok by his pcp - will monitor # Diabetes -hold metformin ,insulin sliding scale used inpatient -Recent a1c 7.9 ' # ARACELIS ,not using CPAP anymore #insominia/anxiety -lorazepam prn,ambien hs prn full code per patient Patient admitted under inpatient status with expected length of stay > 2 midnights for severity of present symptoms, complexities of treatment plan and risk for adverse events VTE Mechanical Devices: Intermittant Pneumatic CD Time spent 35 mins Santiago Mancini MD Jun 14, 2017 11:09
--- NOTE | 2017-06-14 12:07 | PROG NOTE ---
[address] [address] PROGRESS NOTE PATIENT: SONA BERNABE : 1945 MR#: [id number] ADMIT: 06/12/2017 JOB ID: [id number] DATE: 06/14/2017 INFECTIOUS DISEASE FOLLOWUP NOTE: REASON FOR FOLLOWUP: Necrotic gallbladder with E. coli bacteremia. INTERVAL HISTORY: Overnight, the patient has felt well. He is walking around the ch. He has no fevers, no chills, no sweats. Minimal abdominal pain and he is eating well. He still has some degree of constipation. This case was discussed with Dr. Mcmullen, who plans to leave a right upper quadrant drain in place for a considerable period. PHYSICAL EXAMINATION: Reveals an afebrile gentleman, temperature 36.7, pulse 90, respiratory rate 16, blood pressure 160/78. He is in absolutely no distress. Awake and alert. Oral cavity negative. Lungs clear. Cardiac tones normal. Abdomen slightly distended, with right upper quadrant drain, but basically nontender. LABORATORIES: Include a white count which is slowly declining now 13,000, with a monocytosis. His creatinine is 1. His LFTs are normal. Micro studies include the outpatient blood culture that was done just prior to admission which grew E. coli which was very susceptible to Cipro. Unfortunately an intra-abdominal culture grew E. coli as well and this has a different colonial morphology and different susceptibilities, and it is Cipro resistant. It is sensitive to the to Bactrim, but really no other oral antibiotics. IMPRESSION: This is a patient who looks surprisingly well despite being bacteremic and having a necrotic gallbladder, which was resected on June 12. At this point he is rapidly improving and is probably about ready to be discharged today or tomorrow. Unfortunately his 2nd E. coli isolated from the intra-abdominal procedure is resistant to Cipro and we have no easy oral option. I am not comfortable using high-dose Bactrim in a patient this age as treatment for his E. coli, especially a bacteremic infection. RECOMMENDATIONS: 1. I would continue with the Zosyn he is receiving as long as he is here in the hospital. 2. The patient could be discharged at any time from an Infectious Disease point of view, to receive perhaps four more days of IV antibiotics as an outpatient using ertapenem 1 g once a day in the MOC. 3. We will come back around tomorrow and check on the patient as it looks like he will be here until tomorrow and at that point we will make the final recommendations and arrange MOC followup. Thank you very much.
[2017-06-14] MEDS ORDERED: Magnesium Hydroxide 10 mL Oral Concentration PO ONE (16:20)
--- NOTE | 2017-06-14 16:38 | NUR ---
POST-OP PROGRESS Tylenol PO has been adequate for complaints of shoulder pain. Denies any incisional/abdominal pain. Tolerating liquids PO and his diet well. Denies nausea. No emesis noted. Denies SOB. Patient has been ambulating independently in the hallway. Gait is steady. Steri strips in his abdomen is CDI. AGUILAR intact and draining to sanguinous output. AGUILAR instructions was given to the patient and he verbalized understanding. Suppository/Miralax/Senna and prune juice was given to the patient this morning for complaints of constipation. Patient had a small BM.
[2017-06-14] MEDS: LORazepam 0.5 mg Tablet PO SCH (20:34)
[2017-06-15 04:38] VITALS: BP 170/81; PULSE 94; RESP 18; O2SAT 93
[2017-06-15] MEDS: 0.9% Sodium Chloride 1,000 ML IV SCH (04:47)
[2017-06-15] MEDS: Piper-Tazo 3.375 Gm/50 mL D5W Minibag Plus - Q8H over 4 hrs IV SCH ×2 (04:51)
[2017-06-15 05:41] LABS: BASOPHILS % (AUTO) 0.2 % (0-3); EOSINOPHILS % (AUTO) 1.7 % (0-5); MONOCYTES % (AUTO) 16.6 % (4-12); Mean Corpuscular Hemoglobin 31.3 pg (27.0-35.0); Mean Corpuscular Volume 93.8 fL (81-100); NEUTROPHILS % (AUTO) 65.4 % (40-74); Platelet Count 190 bil/L (150-400)
[2017-06-15 05:54] VITALS: PULSE 98
[2017-06-15 06:43] VITALS: BP 162/88; PULSE 88
--- NOTE | 2017-06-15 06:45 | NUR ---
Constipation Pt c/o constipation and was given several meds along with suppository during AM shift yesterday. Pt encouraged to increase fluids and ambulate as able. Pt did produce a few small BMs;however he said it was not enough. Denies pain, nausea and vomiting. VSS. Care continues.
[2017-06-15] MEDS: Insulin LISPRO 300 Unit/3 mL Inj SUBQ SCH ×2 (08:00→12:27)
[2017-06-15 08:26] VITALS: BP 174/81; PULSE 101; RESP 18; O2SAT 96
[2017-06-15] MEDS: Brimonidine 0.2% 5 mL Ophthalmic Solution BOTH_EYES SCH (08:30)
[2017-06-15] MEDS: Pantoprazole 20 mg ER24 Tablet PO SCH (09:53)
[2017-06-15] MEDS: Polyethylene Glycol (PEG) 17 Gm Powder PO PRN (09:54)
--- NOTE | 2017-06-15 10:46 | PCM.PNSURG ---
Subjective Date of Service: Jun 15, 2017 Visit Information: Reason for Visit Bacteremia,Cholecystitis Surgery/Surgery Date Post-Op Day # Date of Admission: Jun 12, 2017 at 09:40 Hospital Day # Subjective: No acute overnight events. Small BM yesterday, passing flatus Tolerating PO intake without nausea or vomiting Pain well controlled, not event requiring tylenol Voiding Ambulating frequently Afebrile Objective Vital Sign- Last 8 Hours Date Time Temp Pulse Resp B/P Pulse Ox O2 Delivery O2 Flow Rate FiO2 06/15/17 08:26 36.5 101 18 174/81 96 Room Air 06/15/17 06:43 88 162/88 06/15/17 05:54 98 06/15/17 04:38 36.6 94 18 170/81 93 Room Air Intake and Output- Last 8 Hour 06/15/17 Cumulative From/Thru 07:00 06/12/17 00:09 - 06/15/17 06:38 Intake Total 1936 ml 86872 ml Output Total 1500 ml 5595 ml Balance 436 ml 4807 ml Intake Oral 600 ml 3840 ml IV Total 1336 ml 6562 ml Output Urine Total 1430 ml 5285 ml Drainage Total 70 ml 290 ml Estimated Blood Loss 20 ml # Bowel Movements 1 General: Alert, Cooperative, No Acute Distress Neck: Supple Lungs: Normal Air Movement Heart: Exam Unremarkable Abdomen: Soft, Other (Moderately distended and protuberant. Lap incisions c/d/ i with steristrips in place. Drain with serosanguinous output. ) Extremities: Warm Result Diagram: 06/15/17 0523 06/15/17 0523 Assessment & Plan Impression POD3 s/p laparoscopic subtotal cholecystectomy for gangrenous cholecystitis. Convalescing appropriately. Problems: Plan - From surgical standpoint, patient is ok to discharge - Drain will remain until follow up appointment - Needs drain teaching + drain log prior to discharge - Steristrips remain in place - Ok to shower - No heavy lifting (>10-15 lbs) x2-4 weeks. - Regular diet - Rest of care and abx plan per ID and primary team Pranay Bueno MD Jun 15, 2017 10:46
--- NOTE | 2017-06-15 10:50 | PROG NOTE ---
[address] [address] PROGRESS NOTE PATIENT: SONA BERNABE : 1945 MR#: [id number] ADMIT: 06/12/2017 JOB ID: [id number] DATE: 06/15/2017 INFECTIOUS DISEASE FOLLOW UP NOTE: REASON FOR FOLLOWUP: Gangrenous gallbladder with E coli bacteremia. INTERVAL HISTORY: Overnight, the patient states that he continues to feel "great." The patient has no fever, no chills. No significant shortness of breath. No notable abdominal pain. PHYSICAL EXAMINATION: Reveals an afebrile gentleman, in no acute distress. Temperature 36.5, pulse 100, respiratory rate 18, blood pressure 174/81. He is saturating well on room air. Sitting up, completely comfortable. Oral cavity negative. Lungs essentially clear. Cardiac tones without new murmur. Abdomen benign with drain in the right upper quadrant. No skin rash. Peripheral IV in left arm appears benign. LABORATORIES: Include a white count which is slowly dropping now 12,000, but with basically a normal differential. Creatinine 0.94 which is also steadily improving. LFTs normal. His blood culture grew E. coli. This E coli had a Cipro [place] of 1, which would suggest at least in terms of bacteremic infection, that Cipro and levo would not be good choices. Because of the absence of good oral therapy here, our plan is to continue with ertapenem for a bit. No new imaging. IMPRESSION: From an ID point of view at least, this patient is ready for discharge. My understanding is that surgery intends to keep the drain in place for awhile and follow him closely and I completely agree. At this point, I think our best bet for ongoing antibiotic therapy is ertapenem. The patient has elected to take the ertapenem by the IM rather than the IV route and this is certainly acceptable in a patient who is not on anticoagulation. RECOMMENDATIONS: 1. Will go ahead and switch his Zosyn to ertapenem today so that we get a dose of ertapenem right now. 2. The patient should continue to receive ertapenem for about three more days in the [facility] and I have written orders for him to receive it on the , and , with a dose of 1 g IM daily during that period. 3. ID will go ahead and sign off at this time as our home antibiotic plan has been set in motion but please do not hesitate to call me with additional issues or problems.
[2017-06-15] MEDS ORDERED: Ertapenem Inj 1,000 MG in 0.9% Sodium Chloride 50 ML IV SCH (11:10)
--- NOTE | 2017-06-15 11:55 | PCM.DIMED ---
Discharge Instructions Date of Service Jun 15, 2017 Dates of Hospitalization Jun 12, 2017 at 09:40 Discharge Diagnosis Discharge Diagnosis Cholecystitis s/p cholecystectomy Medication Instructions Additional med instructions 1 ) BP elevated at dc. Check blood pressure at home. IF > 150 systolic, restart home thiazide 25 mg (patient has medication at home). 2) Return to [facility] on , , and to finish the course of abx. Patient Instructions Patient Instructions - Drain will remain until follow up appointment - Needs drain teaching + drain log prior to discharge - Steristrips remain in place - Ok to shower - No heavy lifting (>10-15 lbs) x2-4 weeks. - Regular diet Follow-up with PCP in: 1 week Provider: Daniel Mcmullen MD Follow-up in: 1 week Santiago Mancini MD Jun 15, 2017 11:55
[2017-06-15] MEDS ORDERED: POLY17PO6 PO (11:59)
--- NOTE | 2017-06-15 11:59 | NUR ---
Orders to [facility] [place] Dr. Scott - Shayy IM orders faxed to [facility] [place]. Addendum: 06/15/17 at 1829 by DANIEL GARCIA RN Verified with [facility] [place] - Pt is scheduled for three days @ 1pm. Patient made aware.
--- NOTE | 2017-06-15 12:03 | PCM.DC.MED ---
Discharge Summary Date of Service Jun 15, 2017 Dates of Hospitalization Date of Hospital Admission Jun 12, 2017 at 09:40 Date of Discharge: Jun 15, 2017 Providers: Admitting Physician: Rd West MD Primary Care Physician: Jay Painter MD Attending Physician: Rik Campa MD Diagnosis at Time of Discharge Diagnosis at Time of Discharge Cholecystitis s/p cholecystectomy Brief History Tor is a pleasant 79-year-old gentleman with past medical history of hypertension, diabetes,HLD, obesity,GERD,ARACELIS who is directly admitted per his PCP Dr.Blume hale due to bacteremia after he presented to his PCP office with fever. Patient was recently hospitalized from 05/25-05/27 for acute acalculous cholecystitis. Workup on prior admission Wbc 20.5,CT and US consistent with acute acalculous cholecystitis. She was treated conservatively with Unasyn and discharged on ciprofloxacin. He improved and had no symptoms for 2 weeks after discharge. Had follow-up with PCP Dr Painter and surgeon Dr Mcmullen on 06/04 . CBC done at PCP on 06/04 reportedly had WBC of 14 but unremarkable otherwise Saturday 06/09 he developed sudden onset high-grade fever,temp as high as 103.0 with associated malaise which prompted his visit to PCP office Sunday/ yesterday . He had blood drawn yesterday . He was also scheduled for CT scan today. This morning he was called by his PCP due to positive blood culture for gram- negative rods, WBC 15,ALT elevated 3x, urinalysis no pyuria and admitted directly for bacteremia labs on 06/11 : WBCs 15, ALT 126, AST 49, bilirubin 0.4, BNP 15, creatinine 1.23, elevated CRP Denies any abdominal pain, nausea or vomiting. His states he had complained of mild epigastric pain few days ago. Denies any urinary complaints. Denies any constipation or diarrhea. Denies cough or dyspnea Hospital Course Tor is a pleasant 79-year-old gentleman with past medical history of hypertension, diabetes,HLD, obesity,GERD,ARACELIS who is directly admitted per his PCP Dr.Blume hale due to bacteremia after he presented to his PCP office with fever. # Gram-negative bacteremia, 2/2 acalculus cholecystitis - initial concern for possible sepsis considering patient clinical picture, patient improved dramatically post surgery and broad spectrum abx. - afebrile now, wbcs trending down - s/p cholecystectomy - to finish course of IV abx with three more doses of ertapenem in MOC # Recent paroxysmal atrial fibrillation on prior hospitalization on 05/26, resolved -never had any history of atrial fibrillation -Episode lasted for 9 minutes -Probably precipitated by infection and hypokalemia -Telemetry -Echocardiogram unremarkable # Hypothyroidism -Recently increased Synthroid from 100mcg to 125mcg on prior hospitalization due to High TSH of 20,low FT4 of 0.69 -Continue Synthroid # HTN -uised to take HTZ however discontinued since his bp has been ok by his pcp - bp elevated at dc, has been getting fluids, to resume if bp stays elevated at home as well # Diabetes -restart home metformin # ARACELIS ,not using CPAP anymore #insominia/anxiety -lorazepam prn,ambien hs prn Exam Vital Signs (Last) Date Time Temp Pulse Resp B/P Pulse Ox O2 Delivery O2 Flow Rate FiO2 06/15/17 08:26 36.5 101 18 174/81 96 Room Air 06/14/17 04:47 2.00 Test 06/12/17 11:12 06/12/17 13:01 06/12/17 20:21 06/14/17 05:32 Magnesium Level 2.0mg/dL (1.6-2.6) Procalcitonin 0.44ng/mL (0.00-0.08) Hold Thomas Top Tube Received (Received) Urine Color Yellow (YELLOW) Urine Appearance Clear (CLEAR,HAZY) Urine pH 5.5 (5.0-8.0) Urine Specific [place] 1.015 (1.003-1.035) Urine Protein 30mg/dL (NEG,TRACE) Urine Glucose (UA) Negativemg/dL (NEGATIVE) Urine Ketones 80mg/dL (NEGATIVE) Urine Occult Blood Small (NEGATIVE) Urine Nitrite Negative (NEGATIVE) Urine Bilirubin Negative (NEGATIVE) Urine Urobilinogen Normalmg/dL (NORMAL) Urine Leukocyte Esterase Negative (NEGATIVE) Urine RBC 3-10/hpf (0-2) Urine WBC 0-5/hpf (0-5) Urine Epithelial Cells Occasional/hpf (NONE-MOD) Urine Crystals Amorphous urates (NONE Urine Bacteria Few/hpf (NONE-FEW) Urine Hyaline Casts None/lpf (NONE) Urine Granular Casts None seen (NONE SEEN) Urine Waxy Casts None seen (NONE SEEN) Urine Red Blood Cell Casts None seen (NONE SEEN) Urine White Blood Cell Casts None seen (NONE SEEN) Urine Mucus None seen (None Seen) Urine Trichomonas None seen (NONE SEEN) Urine Yeast None (NONE SEEN) Urinalysis Comment None Urine Culture Reflexed Not indicated Total Bilirubin 0.5mg/dL (0.0-1.2) Direct Bilirubin 0.2mg/dL (0.0-0.3) Aspartate Amino Transf (AST/SGOT) 21U/L (0-50) Alanine Aminotransferase (ALT/SGPT) 41U/L (0-44) Alkaline Phosphatase 67U/L (25-160) Total Protein 5.7g/dL (6.4-8.4) Albumin 3.1g/dL (3.4-5.0) Test 06/15/17 05:23 White Blood Count 12.4th/mm3 (3.8-10.1) Red Blood Count 4.16mil/mm3 (4.40-5.80) Hemoglobin 13.0g/dL (13.8-17.2) Hematocrit 39.0% (41.0-50.0) Mean Corpuscular Volume 93.8fL (81-100) Mean Corpuscular Hemoglobin 31.3pg (27.0-35.0) Mean Corpuscular Hemoglobin Concent 33.3% (32.0-37.0) Red Cell Distribution Width 13.3% (12.3-15.4) Platelet Count 190bil/L (150-400) Neutrophils (%) (Auto) 65.4% (40-74) Lymphocytes (%) (Auto) 15.6% (14-46) Monocytes (%) (Auto) 16.6% (4-12) Eosinophils (%) (Auto) 1.7% (0-5) Basophils (%) (Auto) 0.2% (0-3) Sodium Level 142mEq/L (134-144) Potassium Level 4.0mEq/L (3.5-5.2) Chloride Level 104mEq/L (97-108) Carbon Dioxide Level 25mmol/L (18-29) Blood Urea Nitrogen 10mg/dL (8-27) Creatinine 0.94mg/dL (0.76-1.27) Estimat Glomerular Filtration Rate 84mL/min (>59) Glucose Level 140mg/dL (60-99) Calcium Level 8.4mg/dL (8.5-10.1) Discharge Medications Discharge Medications Brimonidine Tartrate (Alphagan P) 5 Ml Drops 1 DROP BOTH_EYES BID (Reported) Digestive 8/L.acidoph/Pectin (Digestive Enzymes Tablet) 50 Million Cell-100 Mg Tablet 1 TABLET PO TIDWM (Reported) Levothyroxine (Levothyroxine) 125 Mcg Tablet 125 MCG PO QAM (Reported) Loratadine (Loratadine) 10 Mg Capsule 10 MG PO QAM (Reported) Lorazepam (Lorazepam) 0.5 Mg Tablet 0.5 MG PO HS (Reported) Metformin HCl (Metformin HCl ER) 1,000 Mg [id number] 1,000 MG PO BIDWM (Reported ) Methylcellulose (Citrucel) 500 Mg Tablet 1,000 MG PO BID (Reported) Omeprazole (Omeprazole) 20 Mg Capsule.dr 20 MG PO BID (Reported) Simvastatin (Simvastatin) 40 Mg Tablet 40 MG PO HS (Reported) Ubidecarenone (Coq-10) 100 Mg Capsule 100 MG PO HS (Reported) Zolpidem (Ambien) 10 Mg Tablet 10 MG PO HS (Reported) As needed Polyethylene Glycol 3350 (Miralax) 17 Gm Powd.pack 17 GM PO DAILY PRN PRN For Constipation Prescribed by: RIK CAMPA MD Additional med instructions 1 ) BP elevated at dc. Check blood pressure at home. IF > 150 systolic, restart home thiazide 25 mg (patient has medication at home). 2) Return to [facility] [place] on , , and to finish the course of abx. Followup Plan Patient Instructions - Drain will remain until follow up appointment - Needs drain teaching + drain log prior to discharge - Steristrips remain in place - Ok to shower - No heavy lifting (>10-15 lbs) x2-4 weeks. - Regular diet Follow-up with PCP in: 1 week Provider: Daniel Mcmullen MD Follow-up in: 1 week Time spent 35 mins Rik Campa MD Jun 15, 2017 12:03
--- NOTE | 2017-06-15 13:15 | NUR ---
Discharge Patient is alert and oriented. Able to ambulate himself. IV removed. Patient discharge instructions and teaching complete. Teaching on AGUILAR drain care given. Patient verbalized and demonstrated understanding. Medications and prescriptions covered. Pt to return 06/16, 06/17, and 06/18 for abx injections. Scheduled an appointment for Jun.22 @ 8:15am for follow-up with surgeon and AGUILAR drain removal. Patient discharged with . Addendum: 06/15/17 at 1829 by DANIEL GARCIA RN Denies pain. Does not want any narcotics. Tolerates diet and liquids well. No nausea/vomiting. Small bowel movement yesterday and today.
--- NOTE | 2017-06-15 13:25 | NUR ---
Social Work: Readiness for Discharge/Multidisciplinary Rounds D: EMR Reviewed. Pt is on day 3 of hospitalization. Pt discussed in multidisciplinary rounds - per MD, pt is medically stable for discharge home today pending ID. ID orders sent to [facility] [place] for 4-days of outpt IVABX at [facility] [place]. Per MD, pt anticipated to discharge home today and follow-up with outpt MOC. SW discussed any potential need for HH to care for AGUILAR Drain. MD declined HH order stating pt is independent with AGUILAR drain and is not homebound - pt will only have drain for 1-week and will follow-up with surgery MD for removal of drain. Pt to discharge home today via POV. No SW needs identified, no MD orders received. SW will continue to follow until time of discharge. A: Pt who is independent at baseline P: Pt to discharge home today via POV. Pt independent with AGUILAR Drain and will only have AGUILAR Drain for 1-week until pt sees surgery MD for follow-up. Pt orders sent to [facility] [place] for 4-days outpt IVABX. No SW needs identified, no MD orders received. SW will continue to follow until time of discharge. REMEDIOS Montero
--- NOTE | 2017-06-15 16:00 | NUR ---
Social Work: Discharge D: EMR Reviewed. Pt is on day 3 of hospitalization. Pt discussed in multidisciplinary rounds - per MD, pt is medically stable for discharge home today pending ID. ID orders sent to [facility] for 4-days of outpt IVABX at [facility]. Per MD, pt to discharge home today and follow-up with outpt MOC. SW discussed any potential need for HH to care for AGUILAR Drain. MD declined HH order stating pt is independent with AGUILAR drain and is not homebound - pt will only have drain for 1-week and will follow-up with surgery MD for removal of drain. Pt to discharge home today via POV. No SW needs identified, no MD orders received. SW will continue to follow until time of discharge. A: Pt who is independent at baseline P: Pt to discharge home today via POV. Pt independent with AGUILAR Drain and will only have AGUILAR Drain for 1-week until pt sees surgery MD for follow-up. Pt orders sent to [facility] for 4-days outpt IVABX. No SW needs identified, no MD orders received. SW will continue to follow until time of discharge. REMEDIOS Montero
[2017-06-16] MEDS ORDERED: Ertapenem Inj 500 MG in 0.9% Sodium Chloride 50 ML IV SCH (08:30)
--- NOTE | 2017-06-18 16:26 | PATH ---
SURGICAL PATHOLOGY Attending Physician:Daniel Mcmullen MD CASE STATUS: Signed Out PATIENT NAME: SONA BERNABE PID: [id number] : 1945 DATE COLLECTED:06/12/2017 00:00 SPECIMEN: Gallbladder CLINICAL HISTORY: BACTEREMIA, CHOLECYSTITIS, EXCISION 1). GALLBLADDER AND CONTENTS FINAL DIAGNOSIS: Gallbladder and Contents, Cholecystectomy: Acute cholecystitis with predominantly ulcerated mucosa and transmural suppurative inflammation / granulation tissue (microscopic perforation). Negative for neoplasm. ICD10: K81.0 GROSS DESCRIPTION: The specimen is received in formalin, labeled with the patient's name, sublabeled as gallbladder & contents, and consists of an apparent fragmented gallbladder (7.5 x 6.5 x 1.5 cm in aggregate). The tissue is berkowitz, soft, and partially friable. The specimen cannot be oriented and the cystic duct cannot be identified. The tissue is berkowitz, soft, and partially friable. No lymph nodes are identified. No bile or calculi are present. No nodules, masses or lesions are identified. Section code: (A-D) tissue, serially sectioned, support representative. 06/14/17 ICD-9 CODES: CPT CODES: 1: 44567 Electronically Signed Out Willy Pierson MD, Ph.D. [facility] Pathology [facility] [address], [place] [address] Technical component performed at [facility], [facility] [address], [place], [address]
== END 2017-06-15 13:33 | disposition home or self-care (01) | DRG 854 ==
LOC: OSC 09:40
PROVIDERS: ADMIT Hospitalist; ATTEND Internal Medicine
PROC: 0FB44ZZ Excision of Gallbladder, Percutaneous Endoscopic Approach (ICD-10-PCS; principal; 2017-06-12 18:00)
DX: A41.51 Sepsis due to Escherichia coli [E. coli] (principal); K81.0 Acute cholecystitis; I10 Essential (primary) hypertension; E78.5 Hyperlipidemia, unspecified; E03.9 Hypothyroidism, unspecified; E11.9 Type 2 diabetes mellitus without complications; G47.00 Insomnia, unspecified; F41.9 Anxiety disorder, unspecified